=== PATIENT | female | born 1975 | race African-American/Black ===

== ENCOUNTER 2016-11-18 22:02 | Emergency (ER) | payer MEDICAID ==
[2016-11-18 22:41] VITALS: BP 165/100
[2016-11-18 23:11] LABS: ABSOLUTE BASOPHILS # (AUTO) 0.1 10^3/uL (0.0-0.2); ABSOLUTE EOSINOPHILS # (AUTO) 0.2 10^3/uL (0.0-0.6); ABSOLUTE LYMPHOCYTES (AUTO) 2.7 10^3/uL (0.5-4.7); ABSOLUTE MONOCYTES (AUTO) 0.6 10^3/uL (0.1-1.4); ABSOLUTE NEUT (AUTO) 6.8 10^3/uL (1.7-8.2); BASOPHILS % (AUTO) 1.2 % (0-2); EOSINOPHILS % (AUTO) 1.6 % (0-6); HEMATOCRIT 43.4 % (36.0-47.0); HEMOGLOBIN 14.4 g/dL (12.0-15.5); HGB HCT DIFFERENCE -0.2; LYMPHOCYTES % (AUTO) 26.2 % (13-45); MEAN CORPUSCULAR HEMOGLOBIN 31.3 pg (27.0-33.4); MEAN CORPUSCULAR HGB CONC 33.3 g/dL (32.0-36.0); MEAN CORPUSCULAR VOLUME 94 fl (80-97); MONOCYTES % (AUTO) 5.5 % (3-13); RED CELL DISTRIBUTION WIDTH 14.7 % (11.5-14.0); SEGMENTED NEUTROPHILS % (AUTO) 65.5 % (42-78); WHITE BLOOD COUNT 10.4 10^3/uL (4.0-10.5)
[2016-11-18 23:23] LABS: APPEARANCE,URINE SLIGHTLY-CLOUDY; BILIRUBIN,URINE NEGATIVE (NEGATIVE); GLUCOSE, URINE NEGATIVE (NEGATIVE); KETONES,URINE NEGATIVE (NEGATIVE); LEUKOCYTE ESTERASE,URINE TRACE (NEGATIVE); NITRITE,URINE NEGATIVE (NEGATIVE); PROTEIN,URINE NEGATIVE (NEGATIVE); URINE SPECIFIC GRAVITY 1.025; UROBILINOGEN,URINE NEGATIVE mg/dL (<2.0)
[2016-11-18 23:29] LABS: ALANINE AMINOTRANSFERASE 36 U/L (9-52); ALBUMIN 4.4 g/dL (3.5-5.0); ALKALINE PHOSPHATASE 78 U/L (38-126); ANION GAP 12 (5-19); ASPARTATE AMINO TRANSFERASE 26 U/L (14-36); BILIRUBIN,DIRECT 0.2 mg/dL (0.0-0.4); BILIRUBIN,TOTAL 0.6 mg/dL (0.2-1.3); BLOOD UREA NITROGEN 14 mg/dL (7-20); CALCIUM 10.1 mg/dL (8.4-10.2); CARBON DIOXIDE 29 mmol/L (22-30); CHLORIDE 104 mmol/L (98-107); CREATININE RESULT 0.98 mg/dL (0.52-1.25); GLUCOSE 90 mg/dL (75-110); LIPASE 234.9 U/L (23-300); POTASSIUM 4.2 mmol/L (3.6-5.0); SODIUM 144.5 mmol/L (137-145); TOTAL PROTEIN 7.4 g/dL (6.3-8.2)
[2016-11-19] MEDS ORDERED: METOCLOPRAMIDE HCL ORAL SOLN 10 MG/10 ML UDCUP PO ONE (01:24)
[2016-11-19] MEDS ORDERED: MAG HYDROX/AL HYDROX/SIMETH SUSP 30 ML UDCUP PO ONE (01:24)
[2016-11-19] MEDS ORDERED: LIDOCAINE 2% VISCOUS SOLN 20 ML UDCUP PO ONE (01:24)
[2016-11-19] MEDS ORDERED: NORMAL SALINE 1000 ML 1,000 ML IV ONE (01:26)
[2016-11-19] MEDS ORDERED: HYDROCODONE/ACETAMINOPHEN 5-325 MG TABLET PO ONE (03:48)
--- NOTE | 2016-11-19 06:34 | ER Document Report ---
ED GI/ - General Chief Complaint: Abdominal Pain Stated Complaint: ABDOMINAL PAIN Mode of Arrival: Ambulatory Information source: Patient Notes: 41-year-old female presents to the emergency department complaining of intermittently persistent mid upper abdominal pain over the last few days. Reports pain as sharp and cramping with associated nausea. Reports today had 2- 3 episodes of small amounts of emesis and one episode of loose stool. States pain seems to be worse after eating. Denies fever, chest pain, shortness of breath, blood in emesis or stool. Reports similar symptoms in the past. TRAVEL OUTSIDE OF THE [place] IN LAST 30 DAYS: No - HPI Timing/Duration: Intermittent, Persistent Severity at maximum: Severe Severity in ED: Moderate Pain Level: 3 Location: Epigastric, RUQ Vaginal bleeding (Compared to normal period): None Similar symptoms previously: Yes Recently seen / treated by doctor: No - Related Data Allergies/Adverse Reactions: hydromorphone [From Dilaudid] Allergy (Severe, Verified 11/18/16 22:34) Anxiety ibuprofen Allergy (Intermediate, Verified 11/18/16 22:34) Vomiting Past Medical History - General Information source: Patient - Social History Smoking Status: Never Smoker Frequency of alcohol use: Rare Drug Abuse: None Lives with: Family Family History: Reviewed & Not Pertinent Patient has suicidal ideation: No Patient has homicidal ideation: No - Medical History Medical History: Negative Renal/ Medical History: Denies: Hx Peritoneal Dialysis Past Surgical History: Reports: Hx Cholecystectomy - Immunizations Hx Diphtheria, Pertussis, Tetanus Vaccination: Yes Review of Systems - Review of Systems Constitutional: No symptoms reported EENT: No symptoms reported Cardiovascular: No symptoms reported Respiratory: No symptoms reported Gastrointestinal: See HPI Genitourinary: No symptoms reported Female Genitourinary: No symptoms reported Musculoskeletal: No symptoms reported Skin: No symptoms reported Hematologic/Lymphatic: No symptoms reported Neurological/Psychological: No symptoms reported -: Yes All other systems reviewed and negative Physical Exam - Vital signs Vitals: Temp Pulse Resp BP Pulse Ox 98.4 F 62 14 165/100 H 98 11/18/16 22:34 11/18/16 22:34 11/18/16 22:34 11/18/16 22:34 11/18/16 22:34 - General General appearance: Appears well, Alert In distress: None - HEENT Head: Normocephalic, Atraumatic Eyes: Normal Pupils: PERRL - Respiratory Respiratory status: No respiratory distress Chest status: Nontender Breath sounds: Normal Chest palpation: Normal - Cardiovascular Rhythm: Regular Heart sounds: Normal auscultation Murmur: No Pulses: Normal: Radial Normal capillary refill: Yes - Abdominal Inspection: Normal Distension: No distension Bowel sounds: Normal Tenderness: Tender - Mild tenderness on palpation to mid upper/epigastric area.. No: Nontender, McBurney's point, Langford's sign, Guarding, Rebound, Other Organomegaly: No organomegaly - Back Back: Normal, Nontender - Neurological Neuro grossly intact: Yes Cognition: Normal Orientation: AAOx4 Moro Coma Scale Eye Opening: Spontaneous Moro Coma Scale Verbal: Oriented Aurelia Coma Scale Motor: Obeys Commands Aurelia Coma Scale Total: 15 Speech: Normal Motor strength normal: LUE, RUE, LLE, RLE Sensory: Normal - Skin Skin Temperature: Warm Skin Moisture: Dry Skin Color: Normal Skin Turgor: Elastic Course - Re-evaluation Re-evalutation: 11/19/16 06:45 Patient hemodynamically stable, in no distress, afebrile, nontoxic, and appears well-hydrated. After initial examination and diagnostic studies patient reported that she had a previous cholecystectomy. Discussed ultrasound findings with radiologist who reported initial findings likely artifact from overlying bowel gas. Patient appears stable for discharge at this time and agrees with home care, follow-up, ED return precautions. ED physician Dr. Kim was consulted and concurs with evaluation and treatment plan. - Vital Signs Vital signs: Temp Pulse Resp BP Pulse Ox 98.4 F 62 14 165/100 H 98 11/18/16 22:37 11/18/16 22:37 11/18/16 22:37 11/18/16 22:37 11/18/16 22:37 - Laboratory Result Diagrams: 11/18/16 22:50 11/18/16 22:50 Laboratory results interpreted by me: 11/18/16 11/18/16 22:45 22:50 RDW 14.7 H Urine Blood SMALL H Ur Leukocyte Esterase TRACE H - Diagnostic Test Radiology reviewed: Image reviewed, Reports reviewed Discharge - Discharge Clinical Impression: Upper abdominal pain Condition: Stable Disposition: HOME, SELF-CARE Instructions: Low-Fat Diet ([facility]), Evaluation of Upper Abdominal Pain ([facility]), Acid-Suppressing Medication ([facility]), Antacid Therapy ([facility]), Sucralfate ([facility]), Abdominal Pain ([facility]), Family Physicians / Practices Additional Instructions: Drink plenty of fluids. Avoid caffeine, spicy, salty, fatty foods. Follow-up follow up with your primary care provider this week. Return to the emergency department for any worsening symptoms or concerns. Prescriptions: Ranitidine HCl [Zantac 150 mg Tablet] 150 mg PO BID #30 tablet Sucralfate [Carafate 1 gm Tablet] 1 gm PO ACHS #30 tablet Forms: Return to Work Referrals: MARY TORIBIO MD [ACTIVE STAFF] - Follow up in 3-5 days
== END 2016-11-19 06:53 | disposition home or self-care (01) ==
LOC: ER 22:02
DX: R10.10 Upper abdominal pain, unspecified (principal); R11.0 Nausea
CPT/HCPCS: 99284; 36415; 83690; 84703; 85025; 80053; 81001; 74022; 76705; J3490 ×3

== ENCOUNTER 2017-04-10 19:45 | Emergency (ER) | payer MEDICAID ==
--- NOTE | 2017-04-10 21:30 | ER Document Report ---
ED Medical Screen (RME) - General Chief Complaint: Foot Pain Stated Complaint: LEFT FOOT PAIN Time Seen by Provider: 04/10/17 21:29 Mode of Arrival: Wheelchair Information source: Patient Notes: 41-year-old female presents to ED for left foot and ankle pain. She states she was at home on her bed sitting on her leg and her leg went to sleep and she went to get up and when she stood on her foot she heard a crunch and then she fell over. She states she has pain and swelling to the left lateral ankle. She is already had an x-ray. Patient refused Tylenol and Motrin and ice pack. I have greeted and performed a rapid initial assessment of this patient. A comprehensive ED assessment and evaluation of the patient, analysis of test results and completion of medical decision making process will be conducted by an additional ED providers. TRAVEL OUTSIDE OF THE [place] IN LAST 30 DAYS: No - Related Data Allergies/Adverse Reactions: hydromorphone [From Dilaudid] Adverse Reaction (Severe, Verified 04/10/17 20:31) Anxiety ibuprofen Adverse Reaction (Intermediate, Verified 04/10/17 20:31) Vomiting Past Medical History Renal/ Medical History: Denies: Hx Peritoneal Dialysis Past Surgical History: Reports: Hx Cholecystectomy - Immunizations Hx Diphtheria, Pertussis, Tetanus Vaccination: Yes
--- NOTE | 2017-04-10 21:45 | RADIOLOGY REPORT (SQ) ---
EXAM DESCRIPTION: FOOT LEFT COMPLETE COMPLETED DATE/TIME: 04/10/2017 9:19 pm REASON FOR STUDY: pain COMPARISON: None. NUMBER OF VIEWS: Three views. TECHNIQUE: AP, lateral and oblique radiographic images acquired of the left foot. LIMITATIONS: None. FINDINGS: MINERALIZATION: Normal. BONES: No acute fracture or dislocation. No worrisome bone lesions. JOINTS: No effusions. SOFT TISSUES: No soft tissue swelling. No foreign body. OTHER: No other significant finding. IMPRESSION: NO RADIOGRAPHIC EVIDENCE OF ACUTE INJURY. TECHNICAL DOCUMENTATION: JOB ID: [id number] [employer]- All Rights Reserved
[2017-04-11] MEDS ORDERED: OXYCODONE HCL IR 5 MG TABLET PO ONE (00:06)
--- NOTE | 2017-04-11 00:09 | ER Document Report ---
HPI - HPI Patient complains to provider of: left foot pain Pain Level: 5 Context: Patient is a 41-year-old female comes emergency department for chief complaint of left foot pain. She states that she got off of her bed and stepped awkwardly , she states she heard a crunch in her foot. She reports pain along the left side of her left foot. She denies any other injuries. She denies knee pain. - REPRODUCTIVE LMP: hysterectomy - DERM Skin Color: Normal Past Medical History - General Information source: Patient - Social History Smoking Status: Never Smoker Frequency of alcohol use: None Drug Abuse: None Lives with: Family Family History: Reviewed & Not Pertinent Patient has suicidal ideation: No Patient has homicidal ideation: No - Medical History Medical History: Negative Renal/ Medical History: Denies: Hx Peritoneal Dialysis Past Surgical History: Reports: Hx Cholecystectomy - Immunizations Hx Diphtheria, Pertussis, Tetanus Vaccination: Yes Vertical Provider Document - CONSTITUTIONAL General Appearance: WD/WN, No Apparent Distress, Obese - INFECTION CONTROL TRAVEL OUTSIDE OF THE [place] IN LAST 30 DAYS: No - HEENT HEENT: Atraumatic, Normocephalic - RESPIRATORY Respiratory: Breath Sounds Normal, No Respiratory Distress - CARDIOVASCULAR Cardiovascular: Regular Rate, Regular Rhythm - GI/ABDOMEN Gastrointestinal: Abdomen Soft, Abdomen Non-Tender - MUSCULOSKELETAL/EXTREMETIES Musculoskeletal/Extremeties: Tender - Patient with mild tenderness over the left lateral dorsal aspect of the foot, no swelling, unremarkable ankle exam, normal leg exam, normal distal neurovascular exam Course - Re-evaluation Re-evalutation: Patient states that ibuprofen irritates her stomach and occasionally makes her vomit. No other allergy symptoms reported. Given naproxen with Pepcid to take at the same time. - Diagnostic Test Radiology reviewed: Image reviewed, Reports reviewed Procedures - Immobilization left foot Pre-Proc Neuro Vasc Exam: Normal Immobilizer type: Sergio wrap Performed by: RN Post-Proc Neuro Vasc Exam: Normal Alignment checked and good: Yes Discharge - Discharge Clinical Impression: Injury of left foot Qualifiers: Encounter type: initial encounter Qualified Code(s): S99.922A - Unspecified injury of left foot, initial encounter Condition: Stable Disposition: HOME, SELF-CARE Additional Instructions: X-ray imaging shows no abnormalities. Examination is consistent with soft tissue injury and sprain. Elevate your foot , apply ice to the area 3-4 times a day for 15 minutes, take the anti- inflammatory with the Pepcid at the same time. I recommend using the crutches for 2-3 days until symptoms resolve. Follow-up with primary care for additional management. Return to emergency department for any concerning symptoms. Prescriptions: Famotidine [Pepcid 20 mg Tablet] 20 mg PO BID #20 tablet Naproxen [Naprosyn 250 mg Tablet] 250 mg PO BID #20 tablet
[2017-04-11 00:58] VITALS: BP 138/86
== END 2017-04-11 00:56 | disposition home or self-care (01) ==
LOC: ER 19:45
DX: S99.922A Unspecified injury of left foot, initial encounter (principal); M79.672 Pain in left foot; X58.XXXA Exposure to other specified factors, initial encounter
CPT/HCPCS: 99283; 73630; J3490

== ENCOUNTER 2017-04-25 03:40 | Emergency (ER) | payer MEDICAID ==
[2017-04-25 03:51] VITALS: BP 122/78
[2017-04-25] MEDS ORDERED: ACETAMINOPHEN 325 MG TABLET PO ONE (03:51)
--- NOTE | 2017-04-25 04:27 | RADIOLOGY REPORT (SQ) ---
EXAM DESCRIPTION: FOOT LEFT COMPLETE COMPLETED DATE/TIME: 04/25/2017 4:16 am REASON FOR STUDY: injury . Pain across the dorsal aspect of the metatarsals. COMPARISON: Left foot x-ray 04/10/2017. NUMBER OF VIEWS: Three views. TECHNIQUE: AP, lateral and oblique radiographic images acquired of the left foot. LIMITATIONS: None. FINDINGS: MINERALIZATION: Normal. BONES: No acute fracture or dislocation. Bony spurs noted at the calcaneus. SOFT TISSUES: No soft tissue swelling. No radiopaque foreign body. IMPRESSION: No radiographic evidence of acute injury. TECHNICAL DOCUMENTATION: JOB ID: [id number] [email or web address]- All Rights Reserved
[2017-04-25] MEDS ORDERED: PREDNISONE 20 MG TABLET PO ONE (05:14)
--- NOTE | 2017-04-25 05:16 | ER Document Report ---
ED General - General Chief Complaint: Foot Injury Stated Complaint: FOOT INJURY Time Seen by Provider: 04/25/17 05:05 Notes: Patient is a 5-year-old female who presents with complaint of continued left foot pain. Patient slipped and hurt her left foot approximately 2 weeks ago. She was seen here. She was placed on Naprosyn. She says she continues to hurt in her foot. She has crutches at home but says she does not like them because she feels her crutches are dangerous and that she could follow with the crutches. She therefore continues to walk in her foot. She has not followed up with her doctor. She has not seen orthopedist. She has not followed up with the air brake rigger in regard to this foot. She does have a air brake rigger that she seen several times in the past due to plantar fasciitis on the right foot. She says that her left foot still hurts and therefore she wants to be reevaluated. TRAVEL OUTSIDE OF THE [place] IN LAST 30 DAYS: No - Related Data Allergies/Adverse Reactions: hydromorphone [From Dilaudid] Adverse Reaction (Severe, Verified 04/25/17 03:45) Anxiety ibuprofen Adverse Reaction (Intermediate, Verified 04/25/17 03:45) Vomiting Past Medical History - Social History Smoking Status: Never Smoker Frequency of alcohol use: None Drug Abuse: None Family History: Reviewed & Not Pertinent Pulmonary Medical History: Reports: Hx Asthma Renal/ Medical History: Denies: Hx Peritoneal Dialysis Past Surgical History: Reports: Hx Section, Hx Cholecystectomy - Immunizations Hx Diphtheria, Pertussis, Tetanus Vaccination: Yes Review of Systems - Review of Systems Notes: My Normal Review Basic REVIEW OF SYSTEMS: CONSTITUTIONAL : Denies fever, chills, or sweats. Denies recent illness. MUSCULOSKELETAL: Left foot pain. SKIN: Denies rash or skin lesions. NEUROLOGICAL: Denies sensory or motor loss. ALL OTHER SYSTEMS REVIEWED AND NEGATIVE. Physical Exam - Vital signs Vitals: Temp Pulse Resp BP Pulse Ox 98.9 F 110 H 20 122/78 97 04/25/17 03:45 04/25/17 03:45 04/25/17 03:45 04/25/17 03:45 04/25/17 03:45 - Notes Notes: General Appearance: Well nourished, alert, cooperative, no acute distress, mild to moderate obvious discomfort. Vitals: reviewed, See vital signs table. Extremities: strength 5/5 in all extremities, good pulses in all extremities, tenderness to palpation that is over the distal foot itself. No tenderness over the heel. No tenderness over the proximal foot. No tenderness over the Achilles tendon. Pain is mostly over the dorsum of the foot. I do not really appreciate significant swelling. I do not appreciate any warmth or redness. Is no signs of infection. She is able move her toes without difficulty. Distal sensation is intact. Skin: warm, dry, appropriate color, no rash Neuro: speech clear, oriented x 3, normal affect, responds appropriately to questions. Course - Re-evaluation Re-evalutation: 04/25/17 05:46 X-ray continues to show no sign of fracture. I did inform the patient that she needs to follow-up with a air brake rigger for reevaluation. She does have a air brake rigger that she seen in the past. Informed her that they may decide to do injections. Patient really became upset and says that she does not want any by sticking a needle in her foot. I said that I can therefore attempts to start her on prednisone as a taper in case her pain is related to a tendinitis in her foot. I informed her that this could also just be contusion in the foot. I strongly encourage her to use crutches until she is reevaluated by the air brake rigger. Patient says that she does not want to use the crutches because she does not feel that they are safe. She requests something stronger for pain. I do not think opiate medications are appropriate at this time this patient has no fractures and no significant swelling to the foot. I think the harmful side effects of opiates outweigh the benefits in regards to her foot pain. I again strongly encouraged patient to follow-up with her air brake rigger. I did ask her if she is diabetic. Patient is not diabetic and therefore we will try the prednisone taper. Dictation of this chart was performed using voice recognition software; therefore, there may be some unintended grammatical errors. - Vital Signs Vital signs: Temp Pulse Resp BP Pulse Ox 98.9 F 110 H 20 122/78 97 04/25/17 03:45 04/25/17 03:45 04/25/17 03:45 04/25/17 03:45 04/25/17 03:45 Discharge - Discharge Clinical Impression: Foot pain, left Condition: Good Disposition: HOME, SELF-CARE Additional Instructions: Please follow up with a air brake rigger. Please try to use crutches at home. Most people tolerate prednisone well. Some people will fell unwell when taking the prednisone. If you start feeling ill please stop taking the prednisone. Prescriptions: Prednisone 10 mg PO ASDIR #42 tablet
== END 2017-04-25 05:43 | disposition home or self-care (01) ==
LOC: ER 03:40
DX: M79.672 Pain in left foot (principal); W01.0XXA Fall on same level from slipping, tripping and stumbling without subsequent striking against object, initial encounter
CPT/HCPCS: 99283; 73630; J3490; J7512

== ENCOUNTER 2017-07-22 10:24 | Emergency (ER) | payer MEDICAID ==
[2017-07-22] MEDS ORDERED: NORMAL SALINE 1000 ML 1,000 ML IV ONE (10:35)
[2017-07-22] MEDS ORDERED: ONDANSETRON HCL INJ/PF 4 MG/2 ML SDV IV ONE (10:35)
[2017-07-22] MEDS ORDERED: MORPHINE SULFATE 10 MG/ML INJ IV ONE (10:35)
--- NOTE | 2017-07-22 10:36 | ER Document Report ---
ED Medical Screen (RME) - General Chief Complaint: Nausea/Vomiting/Diarrhea Stated Complaint: VOMITING Time Seen by Provider: 07/22/17 10:34 Notes: Patient complains of vomiting, diarrhea, shortness of breath, all over body pain , hematemesis, and coughing. TRAVEL OUTSIDE OF THE [place] IN LAST 30 DAYS: No - Related Data Allergies/Adverse Reactions: hydromorphone [From Dilaudid] Adverse Reaction (Severe, Verified 07/22/17 10:26) Anxiety ibuprofen Adverse Reaction (Intermediate, Verified 07/22/17 10:26) Vomiting Past Medical History - Social History Chew tobacco use (# tins/day): No Frequency of alcohol use: None Drug Abuse: None Pulmonary Medical History: Reports: Hx Asthma Renal/ Medical History: Denies: Hx Peritoneal Dialysis Past Surgical History: Reports: Hx Section, Hx Cholecystectomy - Immunizations Hx Diphtheria, Pertussis, Tetanus Vaccination: Yes Physical Exam - Vital signs Vitals: Temp Pulse Resp BP Pulse Ox 99.4 F 96 22 H 151/99 H 100 07/22/17 10:32 07/22/17 10:32 07/22/17 10:32 07/22/17 10:32 07/22/17 10:32 Course - Vital Signs Vital signs: Temp Pulse Resp BP Pulse Ox 99.4 F 96 22 H 151/99 H 100 07/22/17 10:32 07/22/17 10:32 07/22/17 10:32 07/22/17 10:32 07/22/17 10:32
--- NOTE | 2017-07-22 11:04 | ER Document Report ---
ED General - General Chief Complaint: Nausea/Vomiting/Diarrhea Stated Complaint: VOMITING Time Seen by Provider: 07/22/17 10:34 Notes: Patient is a 42-year-old female with past medical history including schizophrenia, anxiety, and high blood pressure presents initially 5 days ago with the onset of runny nose, congestion, and "body aches". She states she subsequently has developed vomiting and diarrhea. She denies any and all abdominal pain or dysuria. She denies sore throat, headache, neck stiffness, or rash. She states small amount of blood in some of the vomitus. She did not take her medications this morning secondary to nausea. TRAVEL OUTSIDE OF THE [place] IN LAST 30 DAYS: No - HPI Onset: Other - See above Onset/Duration: Gradual Quality of pain: Achy Severity: Mild Pain Level: 1 Associated symptoms: Other - See above Exacerbated by: Denies Relieved by: Denies Similar symptoms previously: No Recently seen / treated by doctor: No - Related Data Allergies/Adverse Reactions: hydromorphone [From Dilaudid] Adverse Reaction (Severe, Verified 07/22/17 10:26) Anxiety ibuprofen Adverse Reaction (Intermediate, Verified 07/22/17 10:26) Vomiting Past Medical History - General Information source: Patient - Social History Smoking Status: Current Every Day Smoker Cigarette use (# per day): No Chew tobacco use (# tins/day): No Smoking Education Provided: No Frequency of alcohol use: None Drug Abuse: None Family History: Reviewed & Not Pertinent Patient has suicidal ideation: No Patient has homicidal ideation: No Pulmonary Medical History: Reports: Hx Asthma Renal/ Medical History: Denies: Hx Peritoneal Dialysis Past Surgical History: Reports: Hx Section, Hx Cholecystectomy - Immunizations Hx Diphtheria, Pertussis, Tetanus Vaccination: Yes Review of Systems - Review of Systems Constitutional: denies: Fever EENT: Nose congestion, Nose discharge. denies: Eye discharge Cardiovascular: denies: Chest pain, Palpitations Respiratory: denies: Short of breath Gastrointestinal: Diarrhea, Vomiting Genitourinary: denies: Dysuria Musculoskeletal: denies: Leg swelling Skin: Other - no hives. denies: Rash Neurological/Psychological: Other - no slurred speech -: Yes All other systems reviewed and negative Physical Exam - Vital signs Vitals: Temp Pulse Resp BP Pulse Ox 99.4 F 96 22 H 151/99 H 100 07/22/17 10:32 07/22/17 10:32 07/22/17 10:32 07/22/17 10:32 07/22/17 10:32 Notes: Reviewed vital signs and nursing note as charted by RN. CONSTITUTIONAL: Alert and oriented and responds appropriately to questions. Well -appearing; well-nourished HEAD: Normocephalic; atraumatic EYES: Sclerae non-icteric ENT: Normal nose; positive nonpurulent nasal rhinorrhea; moist mucous membranes ; pharynx without lesions noted NECK: Supple without meningismus; non-tender; no cervical lymphadenopathy, no masses CARD: Regular rate and rhythm; no murmurs RESP: Normal chest excursion without splinting or tachypnea; breath sounds clear and equal bilaterally; no wheezing or rhonchi present ABD/GI: Normal bowel sounds; non-distended; soft, nontender to deep palpation of all 4 quadrants of the abdomen BACK: The back appears normal and is non-tender to palpation, there is no CVA tenderness EXT: Normal ROM in all joints; non-tender to palpation; no edema SKIN: No acute lesions noted NEURO: Moves all extremities equally; Motor and sensory function intact PSYCH: The patient's mood and manner are appropriate. Grooming and personal hygiene are appropriate. Course - Re-evaluation Re-evalutation: 07/22/17 11:03 Given the above history, physical, past medical history, with runny nose, congestion, body aches, vomiting, diarrhea, I do believe that this is most likely viral in etiology. We will obtain basic labs, electrolytes, x-ray of the chest, and reassess. I will attempt to provide the patient psychiatric medications prior to discharge. 07/22/17 14:02 Labs and urine as recorded. X-rays recorded. Patient has not vomited here. She is currently sleeping. Pain-free. Abdomen labs as recorded. Patient will be discharged home with strict return precautions and a course of antibiotics. I will also provide antinausea medications. Patient states she will resume her home medications upon discharge. - Vital Signs Vital signs: Temp Pulse Resp BP Pulse Ox 99.4 F 96 22 H 151/99 H 100 07/22/17 10:32 07/22/17 10:32 07/22/17 10:32 07/22/17 10:32 07/22/17 10:32 - Laboratory Result Diagrams: 07/22/17 11:05 07/22/17 11:05 Laboratory results interpreted by me: 07/22/17 07/22/17 07/22/17 11:05 11:05 11:10 WBC 13.3 H Absolute Neutrophils 9.6 H Sodium 146.0 H Potassium 3.5 L Direct Bilirubin 0.5 H AST 40 H Urine Protein 100 H Urine Ketones TRACE H Urine Bilirubin SMALL H Urine Urobilinogen 4.0 H Urine Ascorbic Acid 20 H Discharge - Discharge Clinical Impression: Nausea vomiting and diarrhea Acute bronchitis Qualifiers: Bronchitis organism: unspecified organism Qualified Code(s): J20.9 - Acute bronchitis, unspecified Condition: Good Disposition: HOME, SELF-CARE Additional Instructions: Come back immediately with any worsening cough, lethargy, persistent vomiting or diarrhea, or any other acute problems. Please take medications as prescribed. Prescriptions: Azithromycin [Zithromax 250 mg Tablet] 250 mg PO ASDIR PRN #6 tablet PRN Reason: Metoclopramide HCl [Reglan 10 mg Tablet] 1 tab PO ASDIR PRN #12 tablet PRN Reason:
[2017-07-22 11:25] LABS: ABSOLUTE BASOPHILS # (AUTO) 0.2 10^3/uL (0.0-0.2); ABSOLUTE EOSINOPHILS # (AUTO) 0.1 10^3/uL (0.0-0.6); ABSOLUTE LYMPHOCYTES (AUTO) 2.7 10^3/uL (0.5-4.7); ABSOLUTE MONOCYTES (AUTO) 0.8 10^3/uL (0.1-1.4); ABSOLUTE NEUT (AUTO) 9.6 10^3/uL (1.7-8.2); BASOPHILS % (AUTO) 1.3 % (0-2); EOSINOPHILS % (AUTO) 0.7 % (0-6); HEMOGLOBIN 13.9 g/dL (12.0-15.5); HGB HCT DIFFERENCE 0.7; LYMPHOCYTES % (AUTO) 20.4 % (13-45); MEAN CORPUSCULAR HEMOGLOBIN 30.3 pg (27.0-33.4); MEAN CORPUSCULAR HGB CONC 33.9 g/dL (32.0-36.0); MEAN CORPUSCULAR VOLUME 89 fl (80-97); MONOCYTES % (AUTO) 5.8 % (3-13); RED BLOOD COUNT 4.59 10^6/uL (3.72-5.28); RED CELL DISTRIBUTION WIDTH 13.9 % (11.5-14.0); SEGMENTED NEUTROPHILS % (AUTO) 71.8 % (42-78); WHITE BLOOD COUNT 13.3 10^3/uL (4.0-10.5)
--- NOTE | 2017-07-22 11:29 | RADIOLOGY REPORT (SQ) ---
EXAM DESCRIPTION: CHEST PA/LAT COMPLETED DATE/TIME: 07/22/2017 11:17 am REASON FOR STUDY: 16hw, cough COMPARISON: None. EXAM PARAMETERS: NUMBER OF VIEWS: two views TECHNIQUE: Digital Frontal and Lateral radiographic views of the chest acquired. RADIATION DOSE: NA LIMITATIONS: none FINDINGS: LUNGS AND PLEURA: Patchy, diffuse interstitial pattern. No effusions. MEDIASTINUM AND HILAR STRUCTURES: No masses or contour abnormalities. HEART AND VASCULAR STRUCTURES: Heart normal size. No evidence for failure. BONES: No acute findings. HARDWARE: None in the chest. OTHER: No other significant finding. IMPRESSION: Suspect early viral or atypical pneumonia. Clinical correlation is needed. TECHNICAL DOCUMENTATION: JOB ID: [id number]- All Rights Reserved
[2017-07-22 11:52] LABS: ALANINE AMINOTRANSFERASE 40 U/L (9-52); ALBUMIN 4.4 g/dL (3.5-5.0); ALKALINE PHOSPHATASE 126 U/L (38-126); ANION GAP 19 (5-19); ASPARTATE AMINO TRANSFERASE 40 U/L (14-36); BILIRUBIN,DIRECT 0.5 mg/dL (0.0-0.4); BLOOD UREA NITROGEN 9 mg/dL (7-20); CARBON DIOXIDE 25 mmol/L (22-30); CHLORIDE 102 mmol/L (98-107); CREATININE RESULT 0.88 mg/dL (0.52-1.25); GLUCOSE 96 mg/dL (75-110); LIPASE 166.6 U/L (23-300); POTASSIUM 3.5 mmol/L (3.6-5.0); TOTAL PROTEIN 7.8 g/dL (6.3-8.2)
[2017-07-22 12:06] LABS: APPEARANCE,URINE TURBID; BILIRUBIN,URINE SMALL (NEGATIVE); GLUCOSE, URINE NEGATIVE (NEGATIVE); KETONES,URINE TRACE mg/dL (NEGATIVE); LEUKOCYTE ESTERASE,URINE NEGATIVE (NEGATIVE); NITRITE,URINE NEGATIVE (NEGATIVE); PROTEIN,URINE 100 mg/dL (NEGATIVE); URINE SPECIFIC GRAVITY 1.034
[2017-07-22] MEDS ORDERED: AZITHROMYCIN 250 MG TABLET PO ONE (14:01)
[2017-07-22 15:18] VITALS: BP 133/82
== END 2017-07-22 15:18 | disposition home or self-care (01) ==
LOC: ER 10:24
DX: R11.2 Nausea with vomiting, unspecified (principal); R19.7 Diarrhea, unspecified; J20.9 Acute bronchitis, unspecified; M79.1 Myalgia; Z88.6 Allergy status to analgesic agent
CPT/HCPCS: 99284; 96361; 96374; 96375; 36415; 83690; 85025; 81025; 80053; 81001; 71020; Q0144; J2270; J2405; J7030

== ENCOUNTER 2017-09-22 09:47 | Emergency (ER) | payer SELFPAY ==
[2017-09-22] MEDS ORDERED: ONDANSETRON 4 MG TAB.RAPDIS PO ONE (10:03)
[2017-09-22] MEDS ORDERED: NORMAL SALINE 1000 ML 1,000 ML IV ONE ×2 (10:03→10:25)
--- NOTE | 2017-09-22 10:07 | ER Document Report ---
ED Medical Screen (RME) - General Chief Complaint: Nausea/Vomiting Stated Complaint: VOMITING Time Seen by Provider: 09/22/17 10:03 Mode of Arrival: Ambulatory Information source: Patient TRAVEL OUTSIDE OF THE [place] IN LAST 30 DAYS: No - HPI Onset: Other - 3 DAYS Onset/Duration: Gradual Quality of pain: Achy Severity: Moderate Associated Symptoms: Diarrhea, Vomiting Exacerbated by: Denies Relieved by: Denies Similar symptoms previously: Yes - NOT RECENT Recently seen / treated by doctor: Yes - LAST WK, Rx FOR FLU (TAMIFLU) - Related Data Allergies/Adverse Reactions: hydromorphone [From Dilaudid] Adverse Reaction (Severe, Verified 09/22/17 09:54) Anxiety ibuprofen Adverse Reaction (Intermediate, Verified 09/22/17 09:54) Vomiting Past Medical History - Social History Chew tobacco use (# tins/day): No Frequency of alcohol use: None Drug Abuse: None - Past Medical History Cardiac Medical History: Reports: Hx Hypertension Pulmonary Medical History: Reports: Hx Asthma Renal/ Medical History: Denies: Hx Peritoneal Dialysis Past Surgical History: Reports: Hx Section, Hx Cholecystectomy - Immunizations Hx Diphtheria, Pertussis, Tetanus Vaccination: Yes Review of Systems - Review of Systems Constitutional: Fever EENT: No symptoms reported Cardiovascular: No symptoms reported Respiratory: No symptoms reported Gastrointestinal: See HPI Physical Exam - Vital signs Vitals: Temp Pulse Resp BP Pulse Ox 98.9 F 83 14 135/93 H 96 09/22/17 09:51 09/22/17 09:51 09/22/17 09:51 09/22/17 09:51 09/22/17 09:51 Interpretation: Hypertensive. No: Tachycardic, Tachypneic, Febrile - General General appearance: Appears well, Alert In distress: None - HEENT Head: Normocephalic Eyes: Normal Conjunctiva: Normal Ears: Normal Nasal: Normal Mucous membranes: Dry - MILDLY Pharynx: Normal Neck: Normal - Respiratory Respiratory status: No respiratory distress - Cardiovascular Rhythm: Regular Course - Vital Signs Vital signs: Temp Pulse Resp BP Pulse Ox 98.9 F 83 14 135/93 H 96 09/22/17 09:51 09/22/17 09:51 09/22/17 09:51 09/22/17 09:51 09/22/17 09:51
--- NOTE | 2017-09-22 10:24 | ER Document Report ---
ED GI/ - General Chief Complaint: Nausea/Vomiting Stated Complaint: VOMITING Time Seen by Provider: 09/22/17 10:03 Mode of Arrival: Ambulatory Information source: Patient Notes: 42-year-old female complaining of vomiting and diarrhea since . She works at [employer]. No fever. No abdominal pain. No dysuria. No recent antibiotics. She did take Tamiflu and prednisone earlier in the week when she went to another ER with left ear pain. Left low back pain which she has had in the past. No radiculopathy or saddle anesthesia. TRAVEL OUTSIDE OF THE [place] IN LAST 30 DAYS: No - Related Data Allergies/Adverse Reactions: hydromorphone [From Dilaudid] Adverse Reaction (Severe, Verified 09/22/17 09:54) Anxiety ibuprofen Adverse Reaction (Intermediate, Verified 09/22/17 09:54) Vomiting Past Medical History - General Information source: Patient - Social History Smoking Status: Current Every Day Smoker Chew tobacco use (# tins/day): No Frequency of alcohol use: None Drug Abuse: None Lives with: Family Family History: Reviewed & Not Pertinent Patient has suicidal ideation: No Patient has homicidal ideation: No - Past Medical History Cardiac Medical History: Reports: Hx Hypertension Pulmonary Medical History: Reports: Hx Asthma Renal/ Medical History: Denies: Hx Peritoneal Dialysis Past Surgical History: Reports: Hx Section, Hx Cholecystectomy, Hx Hysterectomy - Immunizations Hx Diphtheria, Pertussis, Tetanus Vaccination: Yes Review of Systems - Review of Systems Constitutional: No symptoms reported EENT: No symptoms reported Cardiovascular: No symptoms reported Respiratory: No symptoms reported Gastrointestinal: See HPI Genitourinary: No symptoms reported Female Genitourinary: No symptoms reported Musculoskeletal: No symptoms reported Skin: No symptoms reported Hematologic/Lymphatic: No symptoms reported Neurological/Psychological: No symptoms reported Physical Exam - Vital signs Vitals: Temp Pulse Resp BP Pulse Ox 98.9 F 83 14 135/93 H 96 09/22/17 09:51 09/22/17 09:51 09/22/17 09:51 09/22/17 09:51 09/22/17 09:51 Interpretation: Normal - Notes Notes: Obese - General General appearance: Appears well, Alert In distress: None - HEENT Head: Normocephalic, Atraumatic Eyes: Normal Conjunctiva: Normal Pupils: PERRL Mucous membranes: Dry Neck: Supple. No: Lymphadenopathy - Respiratory Respiratory status: No respiratory distress Chest status: Nontender Breath sounds: Normal Chest palpation: Normal - Cardiovascular Rhythm: Regular Heart sounds: Normal auscultation Murmur: No - Abdominal Inspection: Normal Distension: No distension Bowel sounds: Normal Tenderness: Nontender. No: Tender Organomegaly: No organomegaly - Back Back: Normal, Nontender. No: Tender, CVA tenderness - Extremities General upper extremity: Normal inspection, Nontender, Normal color, Normal ROM , Normal temperature General lower extremity: Normal inspection, Nontender, Normal color, Normal ROM , Normal temperature, Normal weight bearing. No: Apollo's sign - Neurological Neuro grossly intact: Yes Cognition: Normal Orientation: AAOx4 Holland Coma Scale Eye Opening: Spontaneous [place] Coma Scale Verbal: Oriented [place] Coma Scale Motor: Obeys Commands Aurelia Coma Scale Total: 15 Speech: Normal Motor strength normal: LUE, RUE, LLE, RLE Sensory: Normal - Psychological Associated symptoms: Normal affect, Normal mood - Skin Skin Temperature: Warm Skin Moisture: Dry Skin Color: Normal Skin irregularity: negative: Rash Course - Re-evaluation Re-evalutation: 09/22/17 10:55 Drinking ignacio carlos alberto and eating crackers she is hungry. 09/22/17 12:08 Urinalysis negative for infection with a specific gravity of 1.025 and 3/4 L of fluid. No vomiting or diarrhea while she has been in the emergency room. still c/o left low back pain pointint to the SI joint area. - Vital Signs Vital signs: Temp Pulse Resp BP Pulse Ox 98.9 F 83 14 135/93 H 96 09/22/17 09:51 09/22/17 09:51 09/22/17 09:51 09/22/17 09:51 09/22/17 09:51 - Laboratory Result Diagrams: 09/22/17 10:15 09/22/17 10:15 Laboratory results interpreted by me: 09/22/17 09/22/17 09/22/17 10:15 10:15 11:48 RDW 14.8 H Potassium 3.5 L Glucose 114 H Calcium 10.4 H Urine Blood SMALL H Discharge - Discharge Clinical Impression: Dehydration Vomiting Qualifiers: Vomiting type: unspecified Vomiting Intractability: non-intractable Nausea presence: with nausea Qualified Code(s): R11.2 - Nausea with vomiting, unspecified Diarrhea Qualifiers: Diarrhea type: unspecified type Qualified Code(s): R19.7 - Diarrhea, unspecified Low back pain Qualifiers: Chronicity: acute Back pain laterality: left Sciatica presence: without sciatica Qualified Code(s): M54.5 - Low back pain Condition: Good Disposition: HOME, SELF-CARE Instructions: Intravenous (IV) Fluids ([facility]), Diarrhea, Nonspecific ([facility]), Antinausea Medication ([facility]), Vomiting ([facility]), Low Back Pain ([facility]) Additional Instructions: Warm compress Tylenol for back discomfort Copy of lab were given to you Return to the emergency room any worsening symptoms see family practice doctor for follow up Prescriptions: Ondansetron HCl [Zofran 4 mg Tablet] 1 - 2 tab PO Q4H PRN #20 tablet PRN Reason: Forms: Return to Work
[2017-09-22 10:44] LABS: ABSOLUTE EOSINOPHILS # (AUTO) 0.1 10^3/uL (0.0-0.6); ABSOLUTE LYMPHOCYTES (AUTO) 1.4 10^3/uL (0.5-4.7); ABSOLUTE MONOCYTES (AUTO) 0.4 10^3/uL (0.1-1.4); ABSOLUTE NEUT (AUTO) 4.2 10^3/uL (1.7-8.2); BASOPHILS % (AUTO) 0.5 % (0-2); EOSINOPHILS % (AUTO) 1.6 % (0-6); HEMATOCRIT 43.6 % (36.0-47.0); HEMOGLOBIN 14.6 g/dL (12.0-15.5); LYMPHOCYTES % (AUTO) 22.7 % (13-45); MEAN CORPUSCULAR HEMOGLOBIN 30.1 pg (27.0-33.4); MEAN CORPUSCULAR HGB CONC 33.5 g/dL (32.0-36.0); MEAN CORPUSCULAR VOLUME 90 fl (80-97); MONOCYTES % (AUTO) 6.5 % (3-13); PLATELET COUNT 332 10^3/uL (150-450); RED BLOOD COUNT 4.85 10^6/uL (3.72-5.28); RED CELL DISTRIBUTION WIDTH 14.8 % (11.5-14.0); SEGMENTED NEUTROPHILS % (AUTO) 68.7 % (42-78); TOTAL CELLS COUNTED % (AUTO) 100 %
[2017-09-22 11:02] LABS: ALANINE AMINOTRANSFERASE 51 U/L (9-52); ALBUMIN 4.5 g/dL (3.5-5.0); ALKALINE PHOSPHATASE 73 U/L (38-126); ANION GAP 12 (5-19); ASPARTATE AMINO TRANSFERASE 27 U/L (14-36); BILIRUBIN,DIRECT 0.4 mg/dL (0.0-0.4); BILIRUBIN,TOTAL 0.8 mg/dL (0.2-1.3); BLOOD UREA NITROGEN 10 mg/dL (7-20); CALCIUM 10.4 mg/dL (8.4-10.2); CARBON DIOXIDE 28 mmol/L (22-30); CHLORIDE 103 mmol/L (98-107); GLUCOSE 114 mg/dL (75-110); LIPASE 173.9 U/L (23-300); POTASSIUM 3.5 mmol/L (3.6-5.0); SODIUM 142.6 mmol/L (137-145); TOTAL PROTEIN 7.5 g/dL (6.3-8.2)
[2017-09-22 12:00] LABS: APPEARANCE,URINE CLOUDY; BILIRUBIN,URINE NEGATIVE (NEGATIVE); COLOR,URINE YELLOW; GLUCOSE, URINE NEGATIVE (NEGATIVE); KETONES,URINE NEGATIVE (NEGATIVE); LEUKOCYTE ESTERASE,URINE NEGATIVE (NEGATIVE); NITRITE,URINE NEGATIVE (NEGATIVE); PROTEIN,URINE NEGATIVE (NEGATIVE); URINE SPECIFIC GRAVITY 1.025; UROBILINOGEN,URINE NEGATIVE mg/dL (<2.0)
[2017-09-22] MEDS ORDERED: ACETAMINOPHEN 325 MG TABLET PO ONE (12:13)
[2017-09-22 12:24] VITALS: BP 128/92
== END 2017-09-22 12:25 | disposition home or self-care (01) ==
LOC: ER 09:47
DX: E86.0 Dehydration (principal); R11.2 Nausea with vomiting, unspecified; R19.7 Diarrhea, unspecified; M54.5 Low back pain; E66.9 Obesity, unspecified; F17.200 Nicotine dependence, unspecified, uncomplicated; I10 Essential (primary) hypertension; Z88.6 Allergy status to analgesic agent; Z90.49 Acquired absence of other specified parts of digestive tract; Z90.710 Acquired absence of both cervix and uterus
CPT/HCPCS: 99284; 96360; 96361; 36415; 83690; 85025; 80053; 81001; S0119; J7030

== ENCOUNTER 2017-12-12 21:51 | Emergency (ER) | payer SELFPAY ==
[2017-12-12 22:35] VITALS: BP 152/114
--- NOTE | 2017-12-13 07:50 | EKG REPORT ---
SEVERITY:- BORDERLINE ECG - SINUS RHYTHM PROBABLE LEFT ATRIAL ABNORMALITY BORDERLINE PROLONGED QT INTERVAL : Confirmed by: Regis Gutierrez MD 13-Dec-2017 07:49:45
== END 2017-12-12 23:05 | disposition left against medical advice (07) ==
LOC: ER 21:51
DX: Z53.21 Procedure and treatment not carried out due to patient leaving prior to being seen by health care provider (principal); R07.9 Chest pain, unspecified
CPT/HCPCS: 93005; 93010

== ENCOUNTER 2017-12-13 03:40 | Emergency (ER) | payer SELFPAY ==
--- NOTE | 2017-12-13 03:47 | ER Document Report ---
ED Cardiac - General Chief Complaint: Chest Pain Stated Complaint: CHEST PAIN Time Seen by Provider: 12/13/17 03:46 Notes: The patient is a 42-year-old female, past medical history hypertension, presents with several hours of left upper chest and neck pain. She was in the ER waiting room earlier in the night, but left due to the weight. She arrives by ambulance with her chest pain now. She said aspirin relieved her chest pain. She denies shortness of breath, numbness, tingling, fevers or headache. TRAVEL OUTSIDE OF THE [place] IN LAST 30 DAYS: No - Related Data Allergies/Adverse Reactions: hydromorphone [From Dilaudid] Adverse Reaction (Severe, Verified 12/13/17 04:37) Anxiety ibuprofen Adverse Reaction (Intermediate, Verified 12/13/17 04:37) Vomiting Past Medical History - General Information source: Patient - Social History Smoking Status: Current Every Day Smoker Family History: Reviewed & Not Pertinent - Past Medical History Cardiac Medical History: Reports: Hx Hypertension Pulmonary Medical History: Reports: Hx Asthma Renal/ Medical History: Denies: Hx Peritoneal Dialysis Past Surgical History: Reports: Hx Section, Hx Cholecystectomy, Hx Hysterectomy - Immunizations Hx Diphtheria, Pertussis, Tetanus Vaccination: Yes Review of Systems - Review of Systems Notes: REVIEW OF SYSTEMS: CONSTITUTIONAL: -fevers, -chills EENT: -eye pain, -difficulty swallowing, -nasal congestion CARDIOVASCULAR: +chest pain, -syncope. RESPIRATORY: -cough, -SOB GASTROINTESTINAL: -abdominal pain, -nausea, -vomiting, -diarrhea GENITOURINARY: -dysuria, -hematuria MUSCULOSKELETAL: -back pain, -neck pain SKIN: -rash or skin lesions. HEMATOLOGIC: -easy bruising or bleeding. LYMPHATIC: -swollen, enlarged glands. NEUROLOGICAL: -altered mental status or loss of consciousness, -headache, - neurologic symptoms PSYCHIATRIC: -anxiety, -depression. ALL OTHER SYSTEMS REVIEWED AND NEGATIVE. Physical Exam - Vital signs Vitals: Temp 98.1 F 12/13/17 03:45 - Notes Notes: PHYSICAL EXAMINATION: GENERAL: Well-appearing, well-nourished and in no acute distress. HEAD: Atraumatic, normocephalic. EYES: Pupils equal round and reactive to light, extraocular movements intact, sclera anicteric, conjunctiva are normal. ENT: nares patent, oropharynx clear without exudates. Moist mucous membranes. NECK: Normal range of motion, supple without lymphadenopathy LUNGS: Breath sounds clear to auscultation bilaterally and equal. No wheezes rales or rhonchi. HEART: Regular rate and rhythm without murmurs CHEST WALL: Tenderness over left anterior upper chest wall. ABDOMEN: Soft, nontender, normoactive bowel sounds. No guarding, no rebound. No masses appreciated. EXTREMITIES: Normal range of motion, no pitting or edema. No cyanosis. NEUROLOGICAL: Cranial nerves grossly intact. Normal speech, normal gait. Normal sensory and motor exams. PSYCH: Normal mood, normal affect. SKIN: Warm, Dry, normal turgor, no rashes or lesions noted. Course - Re-evaluation Re-evalutation: Patient appears well. Blood work is unremarkable, including normal troponin. EKG also does not show any evidence of acute ischemic changes or a STEMI. Chest x-ray is also unremarkable. Her HEART score is 1 (1 for risk factors) and she is PERC negative. Symptoms are atypical for aortic dissection at this time. She has an appointment her primary care physician today. Given strict return precautions and she understands. - Vital Signs Vital signs: Temp Pulse Resp BP Pulse Ox 98.1 F 16 137/58 H 100 12/13/17 03:45 12/13/17 04:02 12/13/17 04:02 12/13/17 03:48 - Laboratory Result Diagrams: 12/13/17 03:49 12/13/17 03:49 Laboratory results interpreted by me: 12/13/17 03:49 WBC 10.9 H RDW 14.7 H - Diagnostic Test Radiology reviewed: Image reviewed, Reports reviewed Radiology results interpreted by me: CXR: NAD - EKG Interpretation by Ms EKG shows normal: Sinus rhythm, Velva, Intervals, QRS Complexes, ST-T Waves Rate: Normal Discharge - Discharge Clinical Impression: Chest pain Qualifiers: Chest pain type: unspecified Qualified Code(s): R07.9 - Chest pain, unspecified Condition: Stable Disposition: HOME, SELF-CARE Additional Instructions: CHEST PAIN OF UNCLEAR CAUSE: The exact cause of your chest pain isn't clear. Fortunately, there is no evidence of a dangerous medical condition. Further testing may be required to find the source of the pain. Most often, we find that this pain is coming from the chest wall -- the muscles or rib joints in the chest. But chest pain can come from the lung and lung lining, the esophagus, the heart valves or heart lining, and even the stomach or gallbladder. Rest. Eat lightly until the pain is gone. We may prescribe medicine for pain and inflammation. You should call the physician immediately if the pain radiates to the shoulder, jaw or arms; if you start to run a fever or develop a cough; or if you develop shortness of breath, or other new or alarming symptoms. NORMAL EXAM AND WORKUP: At this time, your examination and workup show no significant abnormality. No significant abnormal physical findings were noted. All laboratory, EKG, and imaging (x-ray, CT scans, ultrasound) studies that were ordered show no significant abnormality. Although your examination and all studies that were ordered showed no significant abnormal finding, there are no examinations and no studies that are 100% accurate. There is always the possibility that some abnormality could exist and not be detected with physical examination or within the limits and capabilities of laboratory and other studies. You should return or follow up as you were instructed on your visit today for further evaluation if your symptoms do not resolve. CHEST WALL PAIN: Your chest pain may be coming from the chest wall. This is often caused by straining the muscles or joints in the chest during physical activity, direct trauma, coughing, or vigorous vomiting. Persons with arthritis are especially prone to this type of pain, due to inflammation of the cartilage joints near the breast bone. Occasionally, no cause can be found. Rest from strenuous physical activity. This kind of chest pain is usually made worse by movement of the chest. Depending on the symptoms, we may prescribe medicine for pain, muscle relaxation, and antiinflammatory effects. If the pain is new, and seems to be due to muscle strain, cold packs can help. Otherwise, apply gentle warmth to the painful area for 15 minutes every hour or two. You should call contact the doctor immediately if things change. Further evaluation is needed if you develop a fever or cough, if the nature of the pain changes, or if you become short of breath. ANGINA EPISODE: Your physician has diagnosed the pain you experienced as an episode of angina. Angina occurs when a portion of the heart muscle temporarily lacks oxygen. It does not cause any permanent heart damage, but serves as a warning. Hospitalization is not necessary now. Evaluation of your cardiac condition , and medical therapy for angina will be necessary. It's important you be sure to keep all appointments and take medication exactly as prescribed. Angina is usually treated with a type of "nitrate" medication. This is available as ointment, pills, or sublingual (under the tongue) tablets. Depending on your clinical situation, other medications may be added to help control angina. These may include beta blockers or calcium blockers. If episodes of angina are occurring with increased frequency, or if chest pain lasts longer than 15 minutes or does not respond to nitroglycerin, you must seek emergency medical care immediately. ASPIRIN: Aspirin has been shown to have a beneficial effect on blood circulation by reducing the clotting effect of platelets in the blood. These beneficial effects can be achieved by taking just a single baby (81 mg) aspirin a day. It is recommended that any person over the age of forty take a single baby aspirin every day for heart and brain circulation, unless you are allergic to aspirin or have some significant bleeding disorder. It is strongly recommended that people who have proven cardiac or blood circulation disturbances should take a baby aspirin every day. FOLLOW-UP CARE: If you have been referred to a physician for follow-up care, call the physician s office for an appointment as you were instructed or within the next two days. If you experience worsening or a significant change in your symptoms, notify the physician immediately or return to the Emergency Department at any time for re-evaluation. Forms: Elevated Blood Pressure Referrals: ENMANUEL BRIZUELA MD [ACTIVE STAFF] - Follow up as needed
[2017-12-13 04:02] LABS: ABSOLUTE BASOPHILS # (AUTO) 0.1 10^3/uL (0.0-0.2); ABSOLUTE EOSINOPHILS # (AUTO) 0.2 10^3/uL (0.0-0.6); ABSOLUTE MONOCYTES (AUTO) 0.8 10^3/uL (0.1-1.4); ABSOLUTE NEUT (AUTO) 6.8 10^3/uL (1.7-8.2); BASOPHILS % (AUTO) 1.4 % (0-2); EOSINOPHILS % (AUTO) 1.6 % (0-6); HEMOGLOBIN 12.4 g/dL (12.0-15.5); LYMPHOCYTES % (AUTO) 27.4 % (13-45); MEAN CORPUSCULAR HEMOGLOBIN 29.8 pg (27.0-33.4); MEAN CORPUSCULAR HGB CONC 33.6 g/dL (32.0-36.0); MEAN CORPUSCULAR VOLUME 89 fl (80-97); MONOCYTES % (AUTO) 7.2 % (3-13); PLATELET COUNT 293 10^3/uL (150-450); RED BLOOD COUNT 4.17 10^6/uL (3.72-5.28); RED CELL DISTRIBUTION WIDTH 14.7 % (11.5-14.0); SEGMENTED NEUTROPHILS % (AUTO) 62.4 % (42-78); TOTAL CELLS COUNTED % (AUTO) 100 %; WHITE BLOOD COUNT 10.9 10^3/uL (4.0-10.5)
[2017-12-13 04:11] LABS: ALANINE AMINOTRANSFERASE 37 U/L (9-52); ALBUMIN 3.9 g/dL (3.5-5.0); ALKALINE PHOSPHATASE 69 U/L (38-126); ANION GAP 10 (5-19); ASPARTATE AMINO TRANSFERASE 23 U/L (14-36); BILIRUBIN,DIRECT 0.3 mg/dL (0.0-0.4); BILIRUBIN,TOTAL 0.3 mg/dL (0.2-1.3); BLOOD UREA NITROGEN 12 mg/dL (7-20); CALCIUM 9.8 mg/dL (8.4-10.2); CARBON DIOXIDE 29 mmol/L (22-30); CHLORIDE 105 mmol/L (98-107); GLUCOSE 89 mg/dL (75-110); POTASSIUM 3.9 mmol/L (3.6-5.0); SODIUM 144.1 mmol/L (137-145); TOTAL PROTEIN 6.9 g/dL (6.3-8.2)
[2017-12-13] MEDS ORDERED: ACETAMINOPHEN 325 MG TABLET PO ONE (04:13)
[2017-12-13 04:23] LABS: NT PRO BNP 55 pg/mL (<125)
--- NOTE | 2017-12-13 04:26 | RADIOLOGY REPORT (SQ) ---
EXAM DESCRIPTION: CHEST SINGLE VIEW CLINICAL HISTORY: 42 years Female, chest pain COMPARISON: 07/22/2017. NUMBER OF VIEWS/TECHNIQUE: 1/AP FINDINGS: Adequate lung volume, clear parenchyma, normal cardiac silhouette, and intact bony thorax. IMPRESSION: No acute cardiopulmonary findings.
[2017-12-13 04:29] LABS: TROPONIN I < 0.012 ng/mL
[2017-12-13 04:34] VITALS: BP 137/58
--- NOTE | 2017-12-13 07:50 | EKG REPORT ---
SEVERITY:- BORDERLINE ECG - SINUS RHYTHM PROBABLE LEFT ATRIAL ABNORMALITY NONSPECIFIC ST-T CHANGES- INFERIOR LEADS : Confirmed by: Regis Gutierrez MD 13-Dec-2017 07:49:35
== END 2017-12-13 04:50 | disposition home or self-care (01) ==
LOC: ER 03:40
DX: R07.9 Chest pain, unspecified (principal); M54.2 Cervicalgia; F17.200 Nicotine dependence, unspecified, uncomplicated; I10 Essential (primary) hypertension; Z88.6 Allergy status to analgesic agent
CPT/HCPCS: 36415; 71045; 80053; 83880; 84484; 84703; 85025; 93005; 93010; 99285

== ENCOUNTER 2018-09-27 17:28 | Emergency (ER) | payer SELFPAY ==
[2018-09-27] MEDS ORDERED: KETOROLAC TROMETHAMINE 60 MG/2 ML SDV IM ONE (20:04)
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
[2018-09-27 21:27] VITALS: BP 151/87
== END 2018-09-27 21:27 | disposition home or self-care (01) ==
LOC: ER 17:28
DX: R07.81 Pleurodynia (principal); V87.7XXD Person injured in collision between other specified motor vehicles (traffic), subsequent encounter; F17.200 Nicotine dependence, unspecified, uncomplicated; I10 Essential (primary) hypertension; J45.909 Unspecified asthma, uncomplicated
CPT/HCPCS: 99283; 96372; 71111; J1885

== ENCOUNTER 2019-08-15 15:57 | Emergency (ER) | payer SELFPAY ==
--- NOTE | 2019-08-15 16:52 | ER Document Report ---
ED Medical Screen (RME) - General Chief Complaint: Fever Stated Complaint: FEVER,VOMITING,DIARR Time Seen by Provider: 08/15/19 16:49 TRAVEL OUTSIDE OF THE [place] IN LAST 30 DAYS: No - HPI Notes: 08/15/19 16:51 Patient is a 44-year-old female presents complaining of nasal congestion/discharge, dry cough fevers, nausea/vomiting/diarrhea over the past 6 days. Patient states that she has not been able to keep any fluids or food down. No chest pain. I have treated and performed a rapid initial assessment of this patient. A comprehensive ED assessment and evaluation of the patient, analysis of test re sults and completion of medical decision making process will be conducted by additional ED providers. PHYSICAL EXAMINATION: GENERAL: Well-appearing, well-nourished and in no acute distress. A&Ox4. Answers questions appropriately. Lungs: wheeze Rt lung. no retractions Abd: grossly non-tender. limited exam in triage. - Related Data Allergies/Adverse Reactions: hydromorphone [From Dilaudid] Adverse Reaction (Severe, Verified 08/15/19 16:47) Anxiety ibuprofen Adverse Reaction (Intermediate, Verified 08/15/19 16:47) Vomiting Past Medical History - Past Medical History Cardiac Medical History: Reports: Hx Hypertension Pulmonary Medical History: Reports: Hx Asthma Renal/ Medical History: Denies: Hx Peritoneal Dialysis Past Surgical History: Reports: Hx Section, Hx Cholecystectomy, Hx Hysterectomy - Immunizations Hx Diphtheria, Pertussis, Tetanus Vaccination: Yes Physical Exam - Vital signs Vitals: Temp Pulse Resp BP Pulse Ox 98.6 F 73 18 138/110 H 97 08/15/19 16:08 08/15/19 16:08 08/15/19 16:08 08/15/19 16:08 08/15/19 16:08 Course - Vital Signs Vital signs: Temp Pulse Resp BP Pulse Ox 98.6 F 73 18 138/110 H 97 08/15/19 16:08 08/15/19 16:08 08/15/19 16:08 08/15/19 16:08 08/15/19 16:08
[2019-08-15] MEDS ORDERED: IPRATROPIUM/ALBUTEROL 0.5-2.5 MG/3 ML AMPUL NEB ONE (16:53)
[2019-08-15] MEDS ORDERED: METHYLPREDNISOLONE INJ 125 MG/2 ML SDV IV ONE (16:53)
[2019-08-15] MEDS ORDERED: NORMAL SALINE 1000 ML 1,000 ML IV ONE (16:54)
[2019-08-15] MEDS ORDERED: ONDANSETRON 4 MG TAB.RAPDIS PO ONE (16:54)
[2019-08-15 17:50] LABS: ABSOLUTE BASOPHILS # (AUTO) 0.1 10^3/uL (0.0-0.2); ABSOLUTE LYMPHOCYTES (AUTO) 2.5 10^3/uL (0.5-4.7); ABSOLUTE MONOCYTES (AUTO) 0.5 10^3/uL (0.1-1.4); ABSOLUTE NEUT (AUTO) 2.7 10^3/uL (1.7-8.2); BASOPHILS % (AUTO) 1.5 % (0-2); EOSINOPHILS % (AUTO) 0.1 % (0-6); HEMATOCRIT 45.1 % (36.0-47.0); HEMOGLOBIN 15.2 g/dL (12.0-15.5); LYMPHOCYTES % (AUTO) 43.2 % (13-45); MEAN CORPUSCULAR HEMOGLOBIN 29.6 pg (27.0-33.4); MEAN CORPUSCULAR HGB CONC 33.8 g/dL (32.0-36.0); MEAN CORPUSCULAR VOLUME 87 fl (80-97); MONOCYTES % (AUTO) 8.6 % (3-13); PLATELET COUNT 253 10^3/uL (150-450); RED BLOOD COUNT 5.15 10^6/uL (3.72-5.28); RED CELL DISTRIBUTION WIDTH 14.2 % (11.5-14.0); SEGMENTED NEUTROPHILS % (AUTO) 46.6 % (42-78); TOTAL CELLS COUNTED % (AUTO) 100 %; WHITE BLOOD COUNT 5.9 10^3/uL (4.0-10.5)
--- NOTE | 2019-08-15 17:50 | RADIOLOGY REPORT (SQ) ---
EXAM DESCRIPTION: CHEST 2 VIEWS COMPLETED DATE/TIME: 08/15/2019 5:29 pm REASON FOR STUDY: cough COMPARISON: 07/22/2017 EXAM PARAMETERS: NUMBER OF VIEWS: two views TECHNIQUE: Digital Frontal and Lateral radiographic views of the chest acquired. RADIATION DOSE: NA LIMITATIONS: none FINDINGS: LUNGS AND PLEURA: No opacities, masses or pneumothorax. No pleural effusion. MEDIASTINUM AND HILAR STRUCTURES: No masses or contour abnormalities. HEART AND VASCULAR STRUCTURES: Cardiomegaly. BONES: Disc degenerative disease of the thoracic spine. HARDWARE: None in the chest. OTHER: No other significant finding. IMPRESSION: Cardiomegaly without acute abnormality of the lungs. No focal airspace opacity. TECHNICAL DOCUMENTATION: JOB ID: [id number] [email or web address] All Rights Reserved Reading location - IP/workstation name: [email or web address]
--- NOTE | 2019-08-15 18:07 | ER Document Report ---
ED GI/ - General Chief Complaint: Nausea/Vomiting/Diarrhea Stated Complaint: FEVER,VOMITING,DIARR Time Seen by Provider: 08/15/19 16:49 Notes: Patient is a 44-year-old female who presents emergency department with a chief complaint of nausea, vomiting and diarrhea. Patient reports she has had nausea vomiting and diarrhea for the past 6 days. Patient reports she does vomit multiple times per day and is unable to keep any liquids or food down it. Patient reports that she does have about 8-10 episodes of diarrhea per day. Patient denies any recent out of country travel. Patient reports that she does work at a [employer] and that multiple employees were diagnosed with the flu and did have similar symptoms. Patient also reports nasal congestion with a productive cough. Patient reports she did start to use Mucinex DM which does seem to help break up the mucus. Patient reports that she does start to cough up the mucus which makes her gag and then vomit. Patient denies blood in the vomitus or stool. Patient denies fever. Patient denies significant past medical history. Patient reports she has had her gallbladder out. Patient reports generalized abdominal cramping that occurs before vomiting and before having a bowel movement. TRAVEL OUTSIDE OF THE [place] IN LAST 30 DAYS: No - Related Data Allergies/Adverse Reactions: hydromorphone [From Dilaudid] Adverse Reaction (Severe, Verified 08/15/19 16:47) Anxiety ibuprofen Adverse Reaction (Intermediate, Verified 08/15/19 16:47) Vomiting Past Medical History - General Information source: Patient - Social History Smoking Status: Current Every Day Smoker Chew tobacco use (# tins/day): No Frequency of alcohol use: None Drug Abuse: None Lives with: Family Family History: Reviewed & Not Pertinent Patient has suicidal ideation: No Patient has homicidal ideation: No - Past Medical History Cardiac Medical History: Reports: Hx Hypertension Pulmonary Medical History: Reports: Hx Asthma EENT Medical History: Reports: None Neurological Medical History: Reports: None Endocrine Medical History: Reports: None Renal/ Medical History: Reports: None. Denies: Hx Peritoneal Dialysis Malignancy Medical History: Reports: None GI Medical History: Reports: None Musculoskeletal Medical History: Reports None Skin Medical History: Reports None Psychiatric Medical History: Reports: None Traumatic Medical History: Reports: None Infectious Medical History: Reports: None Past Surgical History: Reports: Hx Section, Hx Cholecystectomy, Hx Hysterectomy - Immunizations Hx Diphtheria, Pertussis, Tetanus Vaccination: Yes Review of Systems - Review of Systems Constitutional: See HPI EENT: See HPI Cardiovascular: No symptoms reported Respiratory: See HPI Gastrointestinal: See HPI Genitourinary: No symptoms reported Female Genitourinary: No symptoms reported Musculoskeletal: No symptoms reported Skin: No symptoms reported Hematologic/Lymphatic: No symptoms reported Neurological/Psychological: No symptoms reported Physical Exam - Vital signs Vitals: Temp Pulse Resp BP Pulse Ox 98.6 F 73 18 138/110 H 97 08/15/19 16:08 08/15/19 16:08 08/15/19 16:08 08/15/19 16:08 08/15/19 16:08 Interpretation: Hypertensive - Notes Notes: GENERAL: Well-nourished female. HEAD: Atraumatic, normocephalic. EYES: Pupils equal round and reactive to light, extraocular movements intact, sclera anicteric, conjunctiva are normal. ENT: Nares patent, oropharynx clear without exudates. Moist mucous membranes. NECK: Normal range of motion, supple without lymphadenopathy or JVD. LUNGS: Expiratory wheeze noted throughout all lung cárdenas with scattered rhonchi. Of the rhonchi does partially clear with cough. Patient has a persistent congested cough during examination. HEART: Regular rate and rhythm without murmurs, rubs or gallops. ABDOMEN: Soft, obese, round, nontender, hyperactive bowel sounds. No guarding, no rebound. No masses appreciated. BACK: No cervical, thoracic, lumbar midline tenderness. No saddle anesthesia, normal distal neurovascular exam. GENITOURINARY: Deferred. EXTREMITIES: Normal range of motion, no pitting or edema. No clubbing or cyanosis. NEUROLOGICAL: Cranial nerves II through XII grossly intact. Normal speech, normal gait. PSYCH: Normal mood, normal affect. SKIN: Warm, Dry, normal turgor, no rashes or lesions noted. Course - Re-evaluation Re-evalutation: 08/15/19 19:10 Upon reevaluation patient is actively vomiting. It does appear that this is a copious amount of mucus. Patient reports that she did attempt to eat chicken that her family member had brought but then started to vomit. I did inform the patient to refrain from eating until we can get her nausea under control. Patient verbalizes understanding. Patient is actively receiving IV hydration. Will order a dose of IM Phenergan. 08/15/19 20:14 Patient reports feeling better after receiving the Phenergan. Patient's cough has subsided as well as the vomiting. Patient still receiving IV fluids. Patient reports feeling slightly better. Urinalysis and influenza testing pending. 08/15/19 21:06 After receiving the Phenergan patient has not vomited. Patient is sipping on propel water. Will complete this p.o. challenge and if she is able to tolerate this will discharge home. I did discuss the results of the test with the patient and diagnosis to include an upper respiratory infection with nausea vomiting and diarrhea. Patient has not had a stool since being here in the [facility] department. Patient was given strict return precautions. 08/15/19 21:06 Patient is not tachycardic, hypotensive or febrile at this time. 08/15/19 21:55 Patient is tolerating liquids without vomiting. Patient nontoxic-appearing and stable for discharge. Patient given strict return precautions. - Vital Signs Vital signs: Temp Pulse Resp BP Pulse Ox 98.3 F 77 18 148/88 H 95 08/15/19 21:47 08/15/19 21:47 08/15/19 21:47 08/15/19 21:47 08/15/19 21:47 - Laboratory Result Diagrams: 08/15/19 17:33 08/15/19 17:33 Laboratory results interpreted by me: 08/15/19 08/15/19 08/15/19 17:33 17:33 19:27 RDW 14.2 H Potassium 3.4 L AST 62 H Total Protein 9.0 H Urine Protein 100 H Urine Ketones 20 H Urine Bilirubin SMALL H Urine Urobilinogen 2.0 H 08/15/19 21:14 Patient's blood work does not show significant leukocytosis or anemia. Patient's potassium was slightly low at 3.4. Patient's BUN and creatinine are n ormal. Patient has slight elevation in her AST. Patient's urinalysis showed small amount of ketones. Negative influenza. Laboratory 08/15/19 08/15/19 08/15/19 17:33 17:33 19:22 WBC 5.9 RBC 5.15 Hgb 15.2 Hct 45.1 MCV 87 MCH 29.6 MCHC 33.8 RDW 14.2 H Plt Count 253 Lymph % (Auto) 43.2 [place] % (Auto) 8.6 Eos % (Auto) 0.1 Baso % (Auto) 1.5 Absolute Neuts (auto) 2.7 Absolute Lymphs (auto) 2.5 Absolute Monos (auto) 0.5 Absolute Eos (auto) 0.0 Absolute Basos (auto) 0.1 Seg Neutrophils % 46.6 Sodium 143.3 Potassium 3.4 L Chloride 99 Carbon Dioxide 27 Anion Gap 17 BUN 10 Creatinine 0.80 Est GFR ( Amer) > 60 Est GFR (MDRD) Non-Af > 60 Glucose 89 Calcium 10.2 Total Bilirubin 0.6 Direct Bilirubin 0.4 Neonat Total Bilirubin Not Reportable Neonat Direct Bilirubin Not Reportable Neonat Indirect Bili Not Reportable AST 62 H ALT 60 Alkaline Phosphatase 100 Total Protein 9.0 H Albumin 4.9 Lipase 207.8 Urine Color Urine Appearance Urine pH Ur Specific [place] Urine Protein Urine Glucose (UA) Urine Ketones Urine Blood Urine Nitrite (Reflex) Urine Bilirubin Urine Urobilinogen Leukocyte Esterase Rfl Urine RBC (Auto) U Hyaline Cast (Auto) Urine Bacteria (Auto) Urine WBC (Reflex) Squamous Epi Cells Auto Urine Mucus (Auto) Urine Ascorbic Acid Influenza A (Rapid) NEGATIVE Influenza B (Rapid) NEGATIVE 08/15/19 19:27 WBC RBC Hgb Hct MCV MCH MCHC RDW Plt Count Lymph % (Auto) [place] % (Auto) Eos % (Auto) Baso % (Auto) Absolute Neuts (auto) Absolute Lymphs (auto) Absolute Monos (auto) Absolute Eos (auto) Absolute Basos (auto) Seg Neutrophils % Sodium Potassium Chloride Carbon Dioxide Anion Gap BUN Creatinine Est GFR ( Amer) Est GFR (MDRD) Non-Af Glucose Calcium Total Bilirubin Direct Bilirubin Neonat Total Bilirubin Neonat Direct Bilirubin Neonat Indirect Bili AST ALT Alkaline Phosphatase Total Protein Albumin Lipase Urine Color DARK YELLOW Urine Appearance CLOUDY Urine pH 5.0 Ur Specific [place] 1.038 Urine Protein 100 H Urine Glucose (UA) NEGATIVE Urine Ketones 20 H Urine Blood NEGATIVE Urine Nitrite (Reflex) NEGATIVE Urine Bilirubin SMALL H Urine Urobilinogen 2.0 H Leukocyte Esterase Rfl NEGATIVE Urine RBC (Auto) 10 U Hyaline Cast (Auto) 35 Urine Bacteria (Auto) TRACE Urine WBC (Reflex) 6 Squamous Epi Cells Auto 51 Urine Mucus (Auto) MANY Urine Ascorbic Acid NEGATIVE Influenza A (Rapid) Influenza B (Rapid) Discharge - Discharge Clinical Impression: Nausea vomiting and diarrhea, Chills (without fever), Productive cough URI (upper respiratory infection) Qualifiers: URI type: unspecified viral URI Qualified Code(s): J06.9 - Acute upper respiratory infection, unspecified Condition: Stable Disposition: HOME, SELF-CARE Instructions: Antinausea Medication ([facility]), Intravenous (IV) Fluids ([facility]), Upper Respiratory Illness ([facility]), Viral Syndrome ([facility]) Additional Instructions: *Today was seen in the emergency department for nausea, vomiting and diarrhea. After receiving IV fluids you have reported feeling much better. I will prescribe you anti-nausea medication to go home with. Please take this as needed. Over the next 24 to 48 hours I would focus on hydration and a clear liquid diet. Afterwards you can advance to a bland diet also called a brat diet which is bananas, rice, applesauce and toast. Would avoid spicy or greasy foods over the next 48 hours. Please rest. *If you start to have some diarrhea you can take an [id number] Imodium. *You are also being diagnosed with an upper respiratory infection. I will give you an albuterol inhaler to go home with. You can use 2 puffs every 4 hours as needed for wheezing or shortness of breath. Please refrain from smoking or surrounding yourself with cigarette smoke as this can exacerbate your symptoms. Your chest x-ray did not show any signs of infection such as pneumonia. UPPER RESPIRATORY ILLNESS: You have a viral infection of the respiratory passages -- a "cold." This common infection causes nasal congestion, drainage, and often sore throat and cough. It is highly contagious. The disease usually lasts about 10 to 14 days. There is no "cure" for the viral infection -- it must run its course. If there is a complication, such as bacterial infection in the nose, sinuses, middl e ear, or bronchial tubes, antibiotics may be required. The antibiotics won't affect the virus. Drink plenty of fluids. A humidifier may help. An expectorant medication or decongestant may make you more comfortable. Use acetaminophen or ibuprofen for fever or aches. See the doctor if fever persists over two days, if there is any significant worsening of your symptoms, or if you simply fail to improve as expected. INHALED BRONCHODILATORS: You have received a treatment of and/or prescription for an inhaled bronchodilator -- a medication which stimulates the airways in the lung to dilate. This improves the flow of air in asthma, bronchitis, and emphysema. These medicines have some similarity to adrenaline, and can cause similar side effects: shakiness, racing heart, and a sense of nervousness. These side effects decrease with time. Contact your doctor if these side effects are severe. Do not over-use the medicine. Too-frequent use of the inhaler may make it ineffective. Call your doctor if the inhaler is not controlling your symptoms at the prescribed doses. USE OF ACETAMINOPHEN (Tylenol): Acetaminophen may be taken for pain relief or fever control. It's much safer than aspirin, offering a wider range of "safe" dosages. It is safe during . Some brand names are Tylenol, Panadol, Datril, Anacin 3, Tempra, and Liquiprin. Acetaminophen can be repeated every four hours. The following are maximum recommended dosages: >89 pounds or adults 650 mg to 900 mg Acetaminophen can be repeated every four hours. Maximum dose not to exceed 4000 mg a day. SMOKING: If you smoke, you should stop smoking. The tar and chemicals in cigarette smoke are harmful. Smoking has been shown to cause: emphysema chronic bronchitis lung cancer mouth and throat cancer stomach and pancreas cancer premature aging defects In addition, smoking increases ear and lung infections in children of smokers. FOLLOW-UP CARE: If you have been referred to a physician for follow-up care, call the physicians office for an appointment as you were instructed or within the next two days. If you experience worsening or a significant change in your symptoms, notify the physician immediately or return to the Emergency Department at any time for re-evaluation. VOMITING: Vomiting (or nausea without vomiting) can be caused by many other different problems. It can mean that something's wrong with the stomach, such as ulcers or inflammation or the intestinal tract, such as appendicitis. But it can also be a symptom of a problem that has nothing to do with the stomach or intestines. Vomiting is common with severe headaches, earaches, tonsillitis, and kidney infections, etc. We see it with pneumonia or heart attacks. Drugs can cause nausea and vomiting. Many abdominal problems cause vomiting; for example, gallstones, kidney stones, pancreatitis, and intestinal obstruction (blocked bowels). In most cases, curing the vomiting depends on fixing the problem that caused it. For temporary relief, we may use an anti-nausea medicine. For home use, we can prescribe suppositories, chewable pills, pills that dissolve in the mouth, or liquid anti-nausea drugs. If the vomiting seems to be caused by a problem in the stomach, acid-suppressing drugs may be prescribed as well. It's important to avoid dehydration. Sip small amounts of clear liquids (soft drinks, tea, broth, etc) . Try to take fluids frequently even if you are vomiting to prevent dehydration. Take increasing amounts of fluid and when liquids are being consumed successfully, advance to small amounts of bland food (toast, soups, mashed potatoes, etc.) until you are able to resume a regular diet. Avoid aspirin, tobacco, and alcohol. If the vomiting worsens, if the problem that's making you vomit worsens, or if there's evidence of bleeding in the stomach (such as black, tarry stool, or bloody or black vomit), you should return immediately. Also, return if abdominal pain worsens or becomes localized to one area or you develop high fever. Call your doctor if you aren't improved in 24 hours. DIARRHEA, NON-SPECIFIC: Diarrhea means frequent, watery stools. There are many causes. Any problem that keeps the intestinal tract from absorbing water from the stool can lead to diarrhea. A sudden new diarrhea problem is usually caused by a virus, food sensitivity, toxic bacteria, or drugs. In this case, we expect the problem to go away soon. Testing is done only if you seem seriously ill from the diarrhea. If you have chronic diarrhea, or diarrhea that keeps coming back, we need to find out why. Chronic diarrhea can be due to inflammation of the bowels such as Crohn's disease or ulcerative colitis, food sensitivity such as intolerance to lactose or wheat protein, irritable bowel syndrome, and other problems. If your diarrhea is a significant problem but it's not clear why you have it, we'll refer you to a specialist for further testing. During an episode of diarrhea, drink small amounts (two to six ounces) of clear liquids (soft drinks, sport drinks, herb teas, broth, etc). Take fluids frequently to prevent dehydration. It's usually not a problem to take mild anti- diarrhea medication such as Kaopectate or Pepto-Bismol. As the diarrhea eases, advance to small amounts of bland food (mashed potato, toast) for 24 hours. Call the physician if blood appears in your vomit or stool, if vomiting lasts longer than 24 hours, if the abdominal pain worsens or becomes localized to one area, if you develop high fever, or if you become lightheaded and weak. VIRAL SYNDROME: The physician has diagnosed a viral infection. Viruses not only cause "colds," but can cause many different symptoms including generalized aching, fever, headache, cough, diarrhea, nausea, vomiting, and fatigue. The treatment, for the most part, is simply relief of symptoms. This means that antibiotics are usually not given. Rest, fluids, pain medications and, occasionally, medication for the specific symptoms that are most bothersome will be prescribed. Use good handwashing to avoid passing the virus to others. Shared toys should be cleaned with disinfectant. Clean the toilets, sinks, and counter surfaces in bathrooms. Launder clothing in hot water. Contact the physician if you develop any new or unusual symptoms such as severe headache, stiff neck, high fever, chest pain, productive cough, or shortness of breath. You should be rechecked if you don't see marked improvement within seven to 10 days. FOLLOW-UP CARE: If you have been referred to a physician for follow-up care, call the physicians office for an appointment as you were instructed or within the next two days. If you experience worsening or a significant change in your symptoms, notify the physician immediately or return to the Emergency Department at any time for re-evaluation. Prescriptions: Promethazine HCl [Phenergan 25 mg Tablet] 1 tab PO Q6H PRN #15 tablet PRN Reason: Forms: Smoking Cessation Education, Return to Work
[2019-08-15 18:14] LABS: ALBUMIN 4.9 g/dL (3.5-5.0); ALKALINE PHOSPHATASE 100 U/L (38-126); ANION GAP 17 (5-19); ASPARTATE AMINO TRANSFERASE 62 U/L (14-36); BILIRUBIN,DIRECT 0.4 mg/dL (0.0-0.4); BILIRUBIN,TOTAL 0.6 mg/dL (0.2-1.3); BLOOD UREA NITROGEN 10 mg/dL (7-20); CALCIUM 10.2 mg/dL (8.4-10.2); CARBON DIOXIDE 27 mmol/L (22-30); CHLORIDE 99 mmol/L (98-107); GLUCOSE 89 mg/dL (75-110); POTASSIUM 3.4 mmol/L (3.6-5.0)
[2019-08-15] MEDS ORDERED: PROMETHAZINE HCL INJ 25 MG/1 ML VIAL IM ONE (19:10)
[2019-08-15 19:56] LABS: APPEARANCE,URINE CLOUDY; BILIRUBIN,URINE SMALL (NEGATIVE); GLUCOSE, URINE NEGATIVE (NEGATIVE); KETONES,URINE 20 mg/dL (NEGATIVE); PROTEIN,URINE 100 mg/dL (NEGATIVE); URINE SPECIFIC GRAVITY 1.038
[2019-08-15 20:16] LABS: COLOR,URINE DARK YELLOW
[2019-08-15 20:23] LABS: A TYPE INFLUENZA AG NEGATIVE (NEGATIVE); B INFLUENZA AG NEGATIVE (NEGATIVE)
[2019-08-15] MEDS ORDERED: ALBUTEROL SULFATE HFA (90 MCG/PUFF) 8 GM MDI (1 MDI/ER DISP) IH PRN (21:10)
[2019-08-15] MEDS ORDERED: ONDANSETRON ODT 4 MG TAB (6 TAB/ER DISP) PO PRN (21:10)
[2019-08-15 21:50] VITALS: BP 148/88
== END 2019-08-15 21:50 | disposition home or self-care (01) ==
LOC: ER 15:57
DX: J06.9 Acute upper respiratory infection, unspecified (principal); R11.2 Nausea with vomiting, unspecified; R19.7 Diarrhea, unspecified; R09.81 Nasal congestion; R05 Cough; R10.84 Generalized abdominal pain; R68.83 Chills (without fever); F17.200 Nicotine dependence, unspecified, uncomplicated; I10 Essential (primary) hypertension; J45.909 Unspecified asthma, uncomplicated
CPT/HCPCS: 94640; 99284; 96372; 96361; 96374; 36415; 83690; 85025; 80053; 81001; 87804; 71046; S0119; J2930; J2550; J7030; J3490; J7620

== ENCOUNTER 2019-12-19 15:23 | Emergency (ER) | payer SELFPAY ==
--- NOTE | 2019-12-19 16:13 | ER Document Report ---
ED GI/ - General Mode of Arrival: Ambulatory Information source: Patient TRAVEL OUTSIDE OF THE [place] IN LAST 30 DAYS: No - HPI Patient complains to provider of: Abdominal pain, Diarrhea, Vomiting Onset: Other - 5 days Timing/Duration: Persistent Quality of pain: Burning Pain Level: 5 Location: Other - Upper abdomen Associated symptoms: Diarrhea, Nausea, Vomiting. denies: Urinary hesitancy, Urinary frequency, Urinary retention Exacerbated by: Denies Relieved by: Denies Similar symptoms previously: No Recently seen / treated by doctor: No <JO RENNER - Last Filed: 12/19/19 20:35> <MARIO VICENTE - Last Filed: 12/19/19 22:12> - General Chief Complaint: Nausea/Vomiting/Diarrhea Stated Complaint: NAUSEA/VOMITING Time Seen by Provider: 12/19/19 15:47 Notes: Patient presents with a 5-day history of nausea vomiting diarrhea. Patient developed abdominal tenderness to the upper abdomen that radiates around to the right lower thoracic area. Patient reports subjective fever at home. No urinary symptoms. Patient states she is vomited 7 times today and had diarrhea 6 episodes. Patient describes pain as a burning sensation. (JO RENNER) - Related Data Allergies/Adverse Reactions: hydromorphone [From Dilaudid] Adverse Reaction (Severe, Verified 08/15/19 16:47) Anxiety ibuprofen Adverse Reaction (Intermediate, Verified 08/15/19 16:47) Vomiting Past Medical History - General Information source: Patient - Social History Smoking Status: Current Every Day Smoker Frequency of alcohol use: None Drug Abuse: Marijuana Lives with: Family Family History: Reviewed & Not Pertinent Patient has homicidal ideation: No - Past Medical History Cardiac Medical History: Reports: Hx Hypertension Pulmonary Medical History: Reports: Hx Asthma Renal/ Medical History: Denies: Hx Peritoneal Dialysis Past Surgical History: Reports: Hx Section, Hx Cholecystectomy, Hx Hysterectomy - Immunizations Hx Diphtheria, Pertussis, Tetanus Vaccination: Yes <JO RENNER - Last Filed: 12/19/19 20:35> Review of Systems - Review of Systems Constitutional: Fever - Subjective EENT: No symptoms reported Cardiovascular: No symptoms reported. denies: Chest pain Respiratory: No symptoms reported. denies: Cough, Short of breath Gastrointestinal: Abdominal pain, Diarrhea, Nausea, Vomiting Genitourinary: No symptoms reported Female Genitourinary: No symptoms reported Musculoskeletal: Back pain Skin: No symptoms reported Hematologic/Lymphatic: No symptoms reported Neurological/Psychological: No symptoms reported <JO RENNER - Last Filed: 12/19/19 20:35> Physical Exam - General General appearance: Appears well, Alert In distress: None - HEENT Head: Normocephalic, Atraumatic Eyes: Normal Conjunctiva: Normal Nasal: Normal Mouth/Lips: Normal Mucous membranes: Normal Neck: Normal, Supple. No: Lymphadenopathy - Respiratory Respiratory status: No respiratory distress Chest status: Nontender Breath sounds: Normal. No: Rales, Rhonchi, Stridor, Wheezing Chest palpation: Normal - Cardiovascular Rhythm: Regular Heart sounds: S1 appreciated, S2 appreciated Murmur: No - Abdominal Inspection: Morbidly Obese Distension: No distension Bowel sounds: Normal Tenderness: Tender - Upper abdominal tenderness Organomegaly: No organomegaly - Back Back: Normal, Nontender. No: CVA tenderness - Extremities General upper extremity: Normal inspection, Normal strength General lower extremity: Normal inspection, Normal strength - Neurological Neuro grossly intact: Yes Cognition: Normal [place] Coma Scale Eye Opening: Spontaneous [place] Coma Scale Verbal: Oriented [place] Coma Scale Motor: Obeys Commands [place] Coma Scale Total: 15 - Psychological Associated symptoms: Normal affect, Normal mood - Skin Skin Temperature: Warm Skin Moisture: Dry Skin Color: Normal <JO RENNER - Last Filed: 12/19/19 20:35> - Vital signs Vitals: Temp Pulse Resp BP Pulse Ox 99 F 86 18 156/101 H 96 12/19/19 15:24 12/19/19 15:24 12/19/19 15:24 12/19/19 15:24 12/19/19 15:24 Course - Laboratory Result Diagrams: 12/19/19 17:20 12/19/19 17:20 <ZURDOJO - Last Filed: 12/19/19 20:35> - Laboratory Result Diagrams: 12/19/19 17:20 12/19/19 17:20 <MARIO VICENTE - Last Filed: 12/19/19 22:12> - Re-evaluation Re-evalutation: 12/19/19 19:48 Patient complains of persistent abdominal tenderness, pain medication ordered. Additional imaging studies ordered at this time. 12/19/19 20:35 Report and handoff given to RODOLFO Pena. Nursing staff updated regarding plan of care (JO RENNER) 12/19/19 Urinalysis indicates infection including positive nitrites. Culture was placed. CT indicates right-sided pyelonephritis which is consistent with patient's presentation. There is no obstructing stone noted, there is no acute abnormality otherwise. Patient does have mild leukocytosis and low-grade fever here. On my evaluation patient is alert, talkative, playing on her phone, vital signs are unremarkable with blood pressure of systolic at 127, she is not tachycardic, she states she feels much improved already. Patient has received potassium IV, patient is requesting to go home after IV antibiotics. Patient was given her second dose of potassium orally, her EKG does not show peaked T waves or prolonged QT. Her magnesium is unremarkable. Suspect this was transient with her vomiting and diarrhea. Patient will supplement potassium at home instead of taking pills for this after we discussed this. Patient will be placed on antibiotics, provided with symptom management, discussed follow-up and return precautions. Patient states appreciation and agreement with plan. Stab le and well-appearing at time of discharge. (MARIO VICENTE) - Vital Signs Vital signs: Temp Pulse Resp BP Pulse Ox 98.6 F 71 18 127/59 H 96 12/19/19 21:02 12/19/19 21:02 12/19/19 15:24 12/19/19 21:02 12/19/19 21:02 - Laboratory Laboratory results interpreted by me: 12/19/19 12/19/19 12/19/19 17:20 17:20 19:10 WBC 12.6 H Absolute Neuts (auto) 9.1 H Sodium 136.4 L Potassium 2.8 L* Chloride 91 L Carbon Dioxide 39 H BUN 5 L Urine Ketones 20 H Urine Blood MODERATE H Urine Nitrite POSITIVE H Ur Leukocyte Esterase TRACE H Discharge <JO RENNER - Last Filed: 12/19/19 20:35> <MARIO VICENTE - Last Filed: 12/19/19 22:12> - Discharge Clinical Impression: Nausea vomiting and diarrhea Abdominal pain Qualifiers: Abdominal location: unspecified location Qualified Code(s): R10.9 - Unspecified abdominal pain Condition: Stable Disposition: HOME, SELF-CARE Instructions: Oral Narcotic Medication ([facility]) Additional Instructions: Your evaluation is showing that you have a kidney infection causing your symptoms. Take the antibiotics as prescribed, take the nausea medication provided, take the pain medication if needed. Symptoms should rapidly resolve. Drink plenty fluids and rest. Increase potassium in your diet over the next several days as we discussed. Have this rechecked with primary care. Come back if you are worse including severe worsening pain, spiking higher fevers, uncontrolled vomiting, or any other concerning or worsening symptoms. Prescriptions: Cephalexin Monohydrate [Keflex 500 mg Capsule] 500 mg PO QID #28 capsule Ondansetron [Zofran Odt 4 mg Tablet] 1 - 2 tab PO Q4H PRN #15 tab.rapdis PRN Reason: For Nausea/Vomiting Forms: Return to Work
[2019-12-19] MEDS ORDERED: NORMAL SALINE 1000 ML 1,000 ML IV ONE ×2 (16:14→19:50)
[2019-12-19] MEDS ORDERED: ONDANSETRON HCL INJ/PF 4 MG/2 ML SDV IV ONE (16:14)
[2019-12-19 17:51] LABS: ALBUMIN 3.9 g/dL (3.5-5.0); ALKALINE PHOSPHATASE 126 U/L (38-126); ANION GAP 6 (5-19); ASPARTATE AMINO TRANSFERASE 27 U/L (14-36); BILIRUBIN,DIRECT 0.1 mg/dL (0.0-0.4); BILIRUBIN,TOTAL 0.7 mg/dL (0.2-1.3); BLOOD UREA NITROGEN 5 mg/dL (7-20); CALCIUM 9.1 mg/dL (8.4-10.2); CARBON DIOXIDE 39 mmol/L (22-30); CHLORIDE 91 mmol/L (98-107); GLUCOSE 89 mg/dL (75-110); TOTAL PROTEIN 7.3 g/dL (6.3-8.2)
[2019-12-19 17:52] LABS: ABSOLUTE BASOPHILS # (AUTO) 0.1 10^3/uL (0.0-0.2); ABSOLUTE LYMPHOCYTES (AUTO) 2.3 10^3/uL (0.5-4.7); ABSOLUTE MONOCYTES (AUTO) 1.2 10^3/uL (0.1-1.4); ABSOLUTE NEUT (AUTO) 9.1 10^3/uL (1.7-8.2); BASOPHILS % (AUTO) 0.5 % (0-2); EOSINOPHILS % (AUTO) 0.1 % (0-6); HEMATOCRIT 39.2 % (36.0-47.0); HEMOGLOBIN 13.3 g/dL (12.0-15.5); MEAN CORPUSCULAR VOLUME 88 fl (80-97); MONOCYTES % (AUTO) 9.6 % (3-13); PLATELET COUNT 251 10^3/uL (150-450); RED BLOOD COUNT 4.45 10^6/uL (3.72-5.28); RED CELL DISTRIBUTION WIDTH 13.7 % (11.5-14.0); SEGMENTED NEUTROPHILS % (AUTO) 71.8 % (42-78); TOTAL CELLS COUNTED % (AUTO) 100 %; WHITE BLOOD COUNT 12.6 10^3/uL (4.0-10.5)
[2019-12-19 18:02] LABS: POTASSIUM 2.8 mmol/L (3.6-5.0)
[2019-12-19] MEDS ORDERED: FENTANYL CITRATE INJ/PF 100 MCG/2 ML AMPUL IV ONE (18:33)
[2019-12-19] MEDS: POTASSI CL 20 MEQ/50 ML RIDER 20 MEQ/50 ML RTUPB IV SCH ×2 (19:34→22:08)
[2019-12-19] MEDS ORDERED: ACETAMINOPHEN 325 MG TABLET PO ONE (19:50)
--- NOTE | 2019-12-19 20:56 | RADIOLOGY REPORT (SQ) ---
EXAM DESCRIPTION: US ABDOMEN LIMITED COMPLETED DATE/TME: 12/19/2019 16:13 CLINICAL HISTORY: 44 years Female upper abd pain, N/v/d COMPARISON: None. TECHNIQUE: Transabdominal grayscale imaging were performed to evaluate the right upper quadrant. FINDINGS: Study limited by body habitus and bowel gas. Echogenic fatty liver. Pancreas is not well seen. Gallbladder is absent. Right kidney measures 11.4 x 5.5 cm. No hydronephrosis. Aorta appears normal in caliber. Patent hepatopedal portal vein. Common duct measures 7 mm. IMPRESSION: Study is limited by overlying bowel gas Fatty infiltration of the liver Absent gallbladder
[2019-12-19 21:10] LABS: APPEARANCE,URINE SLIGHTLY-CLOUDY; BILIRUBIN,URINE NEGATIVE (NEGATIVE); COLOR,URINE YELLOW; GLUCOSE, URINE NEGATIVE (NEGATIVE); KETONES,URINE 20 mg/dL (NEGATIVE); LEUKOCYTE ESTERASE,URINE TRACE (NEGATIVE); NITRITE,URINE POSITIVE (NEGATIVE); PROTEIN,URINE NEGATIVE (NEGATIVE); UROBILINOGEN,URINE NEGATIVE mg/dL (<2.0)
--- NOTE | 2019-12-19 21:22 | RADIOLOGY REPORT (SQ) ---
EXAM DESCRIPTION: CT ABDOMEN PELVIS WITH IV CONTRAST COMPLETED DATE/TME: 12/19/2019 8:39 PM CLINICAL HISTORY: abd pain, r flank pain COMPARISON: None Available TECHNIQUE: Contiguous axial images of the abdomen and pelvis were obtained followed by reconstruction images. This exam was performed according to our departmental dose-optimization program, which includes automated exposure control, adjustment of the mA and/or kV according to patient size and/or use of iterative reconstruction technique. FINDINGS: Peripheral areas of abnormal enhancement within the posterior aspect of the right kidney with stranding of the adjacent fat compatible with pyelonephritis. There is no hydronephrosis. Calcifications within the pelvis compatible with phleboliths. The liver, spleen, pancreas and kidneys are otherwise within normal limits. There is no hydronephrosis or renal stones. The gallbladder is unremarkable by CT criteria. Adrenal glands are within normal limits. Aorta is of normal caliber and tapering. There is no free fluid in the abdomen or pelvis. There is no bowel obstruction. The appendix is within normal limits. There is no pericecal inflammation. IMPRESSION: Above findings are compatible with right-sided pyelonephritis. Correlation with laboratory data recommended.
--- NOTE | 2019-12-19 21:24 | EKG REPORT ---
SEVERITY:- NORMAL ECG - SINUS RHYTHM : Confirmed by: Aurora Wright MD 19-Dec-2019 21:24:15
[2019-12-19] MEDS ORDERED: CEFTRIAXONE 1 GM/D5W RTU 1 GM/50 ML RTUPB IV ONE (21:43)
[2019-12-19] MEDS ORDERED: POTASSIUM CHLORIDE 10 MEQ TABLET.ER PO ONE (21:50)
[2019-12-19] MEDS ORDERED: CEFTRIAXONE INJ 1000 MG VIAL IV ONE (21:56)
[2019-12-19] MEDS ORDERED: HYDROCODONE/ACETAMINOPHEN 5-325 MG (6 TAB/ER DISP) PO PRN (22:12)
[2019-12-19] MEDS ORDERED: ONDANSETRON ODT 4 MG TAB (6 TAB/ER DISP) PO PRN (22:12)
[2019-12-19 23:11] VITALS: BP 121/78
== END 2019-12-19 23:19 | disposition home or self-care (01) ==
LOC: ER 15:23
DX: R11.2 Nausea with vomiting, unspecified (principal); R19.7 Diarrhea, unspecified; N12 Tubulo-interstitial nephritis, not specified as acute or chronic; R10.9 Unspecified abdominal pain; R10.819 Abdominal tenderness, unspecified site; M54.9 Dorsalgia, unspecified; R50.9 Fever, unspecified; F17.200 Nicotine dependence, unspecified, uncomplicated; F12.10 Cannabis abuse, uncomplicated; I10 Essential (primary) hypertension; J45.909 Unspecified asthma, uncomplicated; Z90.49 Acquired absence of other specified parts of digestive tract; Z90.710 Acquired absence of both cervix and uterus
CPT/HCPCS: 93005; 99284; 96361; 96375; 96365; 96366; 96367; 36415; 87040; 87086; 83690; 83735; 85025; 87077; 87088; 80053; 81001; 87186; 87150 ×26; 76705; 74177; 93010; J3010; J0696; J2405; J3480; J7030

== ENCOUNTER 2020-05-01 15:55 | Emergency (ER) | payer SELFPAY ==
[2020-05-01 16:01] VITALS: BP 157/93
--- NOTE | 2020-05-01 16:12 | ER Document Report ---
HPI - HPI Time Seen by Provider: 05/01/20 16:00 Pain Level: 4 Context: Patient is a 44-year-old female presents emergency department with a chief complaint of tooth pain to tooth number #3. Patient states that she has had on and off pain for the past few months. She states that she started to have a fever. She also noted that she had some right ankle swelling, but denied any injury or tripping. Denies any past medical history. She does not take any medications. Has been trying Tylenol, but has not had relief of her pain. - ROS Systems Reviewed and Negative: Yes All other systems reviewed and negative - CONSTITUTIONAL Constitutional: REPORTS: Fever. DENIES: Chills - EENT Notes: See HPI. - REPRODUCTIVE Reproductive: DENIES: : - MUSCULOSKELETAL Musculoskeletal: REPORTS: Extremity pain - Right ankle, Swelling - Right ankle - DERM Skin Color: Normal Skin Problems: Rash - Right lateral ankle Past Medical History - Social History Smoking Status: Current Every Day Smoker Frequency of alcohol use: None Drug Abuse: None Family History: Reviewed & Not Pertinent - Past Medical History Cardiac Medical History: Reports: Hx Hypertension Pulmonary Medical History: Reports: Hx Asthma Renal/ Medical History: Denies: Hx Peritoneal Dialysis Past Surgical History: Reports: Hx Section, Hx Cholecystectomy, Hx Hysterectomy - Immunizations Hx Diphtheria, Pertussis, Tetanus Vaccination: Yes Vertical Provider Document - CONSTITUTIONAL Agree With Documented VS: Yes Exam Limitations: No Limitations General Appearance: No Apparent Distress - INFECTION CONTROL TRAVEL OUTSIDE OF THE [place] IN LAST 30 DAYS: No - HEENT HEENT: Atraumatic, Normocephalic, PERRLA - NECK Neck: Normal Inspection - RESPIRATORY Respiratory: Breath Sounds Normal, No Respiratory Distress - CARDIOVASCULAR Cardiovascular: Regular Rate, Regular Rhythm Pulses: Normal: Radial - MUSCULOSKELETAL/EXTREMETIES Musculoskeletal/Extremeties: FROM, Tender - Right ankle, Edema - Very slight to right ankle - NEURO Level of Consciousness: Awake, Alert, Appropriate Motor/Sensory: No Motor Deficit, No Sensory Deficit - DERM Integumentary: Warm, Dry, Rash - Very slight to right ankle Course - Re-evaluation Re-evalutation: 05/01/20 Patient's physical exam and history is most consistent with a infected tooth. Patient is able to swallow, no facial swelling noted, airway is patent, vital signs are normal. I do not suspect Eben's angina, peritonsilar abscess, or airway obstruction. The patient will be started on oral antibiotics. I have given the patient education on their antibiotics. Patient was given instructions to follow-up with a dentist this week. We will give her Augmentin to also cover swelling to her right ankle, as this appears to be cellulitis. I have a low suspicion for DVT. Return precautions were given. Verbal discharge instructions were given. Patient verbalized understanding. Patient is stable for discharge. - Vital Signs Vital signs: Temp Pulse Resp BP Pulse Ox 99.2 F 64 20 157/93 H 99 05/01/20 16:00 05/01/20 16:00 05/01/20 16:00 05/01/20 16:00 05/01/20 16:00 Discharge - Discharge Clinical Impression: Tooth pain, Pain and swelling of right ankle Condition: Stable Disposition: HOME, SELF-CARE Additional Instructions: You were seen today in the emergency department for tooth pain and right ankle pain. You are being started on antibiotics. Take all your antibiotics as prescribed. Follow-up with [facility]. Take the pain medicine for extreme pain. Prescriptions: Amoxicillin/Potassium Clav [Augmentin 875-125 Tablet] 1 tab PO BID #14 tab Hydrocodone/Acetaminophen [[place] 5-325 mg Tablet] 1 tab PO ASDIR PRN #10 tablet PRN Reason: Referrals: [facility] [Provider Group] - Follow up in 1 week
== END 2020-05-01 16:20 | disposition home or self-care (01) ==
LOC: ER 15:55
DX: K08.9 Disorder of teeth and supporting structures, unspecified (principal); M25.571 Pain in right ankle and joints of right foot; F17.200 Nicotine dependence, unspecified, uncomplicated; I10 Essential (primary) hypertension; Z90.49 Acquired absence of other specified parts of digestive tract
CPT/HCPCS: 99284

== ENCOUNTER 2020-05-13 13:27 | Emergency (ER) | payer SELFPAY ==
--- NOTE | 2020-05-13 14:26 | ER Document Report ---
ED Medical Screen (RME) - General Chief Complaint: Leg Pain Stated Complaint: LEG PAIN Time Seen by Provider: 05/13/20 14:19 Mode of Arrival: Wheelchair Information source: Patient Notes: 44-year-old female patient presenting to emergency department chief complaint of left lower extremity pain and swelling. Patient reports pain to the left calf and behind the left knee. She denies any history of DVT or PE. She is not on any blood thinners. She does not take oral contraceptive pills. She has not any recent travel. She is a smoker daily. Exam: Mild swelling noted to left lower extremity, no obvious injury, no obvious erythema. Limited exam due to patient wearing pants in triage. I have greeted and performed a rapid initial assessment of this patient. A comprehensive ED assessment and evaluation of the patient, analysis of test results and completion of the medical decision making process will be conducted by additional ED providers. I have specifically instructed the patient or family members with the patient to immediately return to any nursing staff should anything change in the patient's condition or with their chief complaint. TRAVEL OUTSIDE OF THE [place] IN LAST 30 DAYS: No - Related Data Allergies/Adverse Reactions: hydromorphone [From Dilaudid] Adverse Reaction (Severe, Verified 05/13/20 14:19) Anxiety ibuprofen Adverse Reaction (Intermediate, Verified 05/13/20 14:19) Vomiting Past Medical History - Social History Chew tobacco use (# tins/day): No - Past Medical History Cardiac Medical History: Reports: Hx Hypertension Pulmonary Medical History: Reports: Hx Asthma Renal/ Medical History: Denies: Hx Peritoneal Dialysis Past Surgical History: Reports: Hx Section, Hx Cholecystectomy, Hx Hys terectomy - Immunizations Hx Diphtheria, Pertussis, Tetanus Vaccination: Yes Physical Exam - Vital signs Vitals: Temp Pulse Resp BP Pulse Ox 98.3 F 63 18 154/79 H 99 05/13/20 14:05 05/13/20 14:05 05/13/20 14:05 05/13/20 14:05 05/13/20 14:05 Course - Vital Signs Vital signs: Temp Pulse Resp BP Pulse Ox 98.3 F 63 18 154/79 H 99 05/13/20 14:05 05/13/20 14:05 05/13/20 14:05 05/13/20 14:05 05/13/20 14:05
[2020-05-13 15:25] LABS: INTERNATIONAL RATION (INR) 1.21; PROTHROMBIN TIME 15.5 SEC (11.4-15.4)
[2020-05-13 15:26] LABS: PARTIAL THROMBOPLASTIN TIME 33.9 SEC (23.5-35.8)
[2020-05-13] MEDS ORDERED: OXYCODONE-ACETAMINOPHEN 5-325 MG TABLET PO ONE (15:43)
--- NOTE | 2020-05-13 16:46 | RADIOLOGY REPORT (SQ) ---
EXAM DESCRIPTION: VENOUS UNILATERAL LOWER IMAGES COMPLETED DATE/TIME: 05/13/2020 4:34 pm REASON FOR STUDY: LLE pain/swelling COMPARISON: None. TECHNIQUE: Dynamic and static palma scale and color images acquired of the left leg venous system. Se lected spectral images acquired with additional compression and augmentation maneuvers. The contralat eral common femoral vein and saphenofemoral junction were also imaged. Images stored on PACS. LIMITATIONS: None. FINDINGS: LEFT COMMON FEMORAL: Normal phasicity, compression and augmentation. No visualized echogenic material on g ray scale. No defects on color images. FEMORAL: Normal compression and augmentation. No visualized echogenic material on palma scale. No defe cts on color images. POPLITEAL: Normal compression, augmentation. No visualized echogenic material on palma scale. No defec ts on color images. CALF VESSELS: Hypoechoic acute clot in the paired posterior tibial veins in the left calf. GSV and SSV: Normal compression, augmentation. No visualized echogenic material on palma scale. No def ects on color images. ANY DEEP VENOUS INSUFFICIENCY: Not evaluated. ANY EVIDENCE OF POPLITEAL CYST: No. OTHER: No other significant finding. RIGHT COMMON FEMORAL VEIN AND SAPHENOFEMORAL JUNCTION: Normal phasicity, compression and augmentation. No visualized echogenic material on palma scale. No de fects on color images. IMPRESSION: Hypoechoic acute clot in the paired posterior tibial veins in the left calf. TECHNICAL DOCUMENTATION: JOB ID: [id number] 2010 [employer]- All Rights Reserved Reading location - IP/workstation name: [email or web address]
[2020-05-13 19:36] LABS: ALBUMIN 4.1 g/dL (3.5-5.0); ALKALINE PHOSPHATASE 75 U/L (38-126); ANION GAP 7 (5-19); ASPARTATE AMINO TRANSFERASE 21 U/L (14-36); BILIRUBIN,DIRECT 0.4 mg/dL (0.0-0.4); BILIRUBIN,TOTAL 0.4 mg/dL (0.2-1.3); BLOOD UREA NITROGEN 9 mg/dL (7-20); CALCIUM 9.6 mg/dL (8.4-10.2); CARBON DIOXIDE 31 mmol/L (22-30); CHLORIDE 103 mmol/L (98-107); GLUCOSE 109 mg/dL (75-110); POTASSIUM 4.2 mmol/L (3.6-5.0); TOTAL PROTEIN 7.2 g/dL (6.3-8.2)
--- NOTE | 2020-05-13 20:20 | ER Document Report ---
ED General - General Mode of Arrival: Wheelchair TRAVEL OUTSIDE OF THE [place] IN LAST 30 DAYS: No <SHAHZAD DUMONT - Last Filed: 05/14/20 05:57> <BRADFORD HELLER - Last Filed: 05/14/20 09:02> - General Chief Complaint: Leg Pain Stated Complaint: LEG PAIN Time Seen by Provider: 05/13/20 14:19 Primary Care Provider: [facility] [Provider Group] - 05/16/20 Notes: Patient is a 44-year-old female who presents emergency department with a chief complaint of left lower extremity pain that started couple weeks ago. Patient was seen in triage and was diagnosed with a DVT. Patient then ended up having some shortness of breath. Patient states that her shortness of breath will come and go. Patient is an everyday smoker. Denies any blood thinner use. Patient has a history of hypertension, but is currently not on medications. She has an appointment with [facility] on May 23. (SHAHZAD DUMONT) - Related Data Allergies/Adverse Reactions: hydromorphone [From Dilaudid] Adverse Reaction (Severe, Verified 05/13/20 14:19) Anxiety ibuprofen Adverse Reaction (Intermediate, Verified 05/13/20 14:19) Vomiting Past Medical History - General Information source: Patient - Social History Smoking Status: Current Every Day Smoker Chew tobacco use (# tins/day): No Family History: Reviewed & Not Pertinent - Past Medical History Cardiac Medical History: Reports: Hx Hypertension Pulmonary Medical History: Reports: Hx Asthma Renal/ Medical History: Denies: Hx Peritoneal Dialysis Past Surgical History: Reports: Hx Section, Hx Cholecystectomy, Hx Hyst erectomy - Immunizations Hx Diphtheria, Pertussis, Tetanus Vaccination: Yes <SHAHZAD DUMONT - Last Filed: 05/14/20 05:57> Review of Systems <ROGER DUMONTVIVI Butler - Last Filed: 05/14/20 05:57> - Review of Systems Notes: REVIEW OF SYSTEMS: CONSTITUTIONAL : Denies recent illness. Denies recent unintentional weight loss. Denies fever, chills, or sweats. EENT: Denies eye, ear, throat, or mouth pain, discharge, or symptoms. Denies nasal or sinus congestion. CARDIOVASCULAR: Denies chest pain. RESPIRATORY: See HPI. GASTROINTESTINAL: Denies nausea, vomiting, and diarrhea. Denies abdominal pain. Denies constipation. GENITOURINARY: Denies difficulty urinating, burning, blood in urine, urgency or frequency. MUSCULOSKELETAL: Denies neck and back pain. See HPI. SKIN: Denies rash, itchiness, or lesions HEMATOLOGIC : Denies easy bruising or bleeding. LYMPHATIC: Denies swollen, painful, enlarged glands. NEUROLOGICAL: Denies no numbness or tingling denies weakness. Denies headache. Denies altered mental status. Denies alteration in speech. PSYCHIATRIC: Denies stress, anxiety, alteration in sleep patterns, or depression. All other systems reviewed and negative. (SHAHZAD DUMONT) Physical Exam <SHAHZAD DUMONT - Last Filed: 05/14/20 05:57> - Vital signs Vitals: Temp Pulse Resp BP Pulse Ox 98.3 F 63 18 154/79 H 99 05/13/20 14:05 05/13/20 14:05 05/13/20 14:05 05/13/20 14:05 05/13/20 14:05 - Notes Notes: PHYSICAL EXAMINATION: GENERAL: Appears well, healthy, well-nourished, no acute distress. HEAD: Normocephalic, atraumatic. EYES: PERRL, conjunctiva normal, all extraocular movements intact, sclera nonicteric ENT: Moist mucous membranes. NECK: Supple, no noticeable swelling, redness, rash. Normal range of motion. LUNGS: Equal breath sounds bilaterally and clear to auscultation. No wheezes rales or rhonchi. CARDIOVASCULAR: S1-S2, regular rate, regular rhythm. Radial pulses 2+, normal. ABDOMEN: Normoactive bowel sounds. Soft, nontender, no guarding, no rebound tenderness, and no masses palpated. EXTREMITIES: Normal strength and range of motion, no pitting or edema. No cyanosis. NEUROLOGICAL: Moves all extremities upon command. Strength 5/5 in all extremities. PSYCH: Normal mood, normal affect. SKIN: Warm, dry. No rash, lesions, ulcerations noted. Normal skin turgor. (SHAHZAD DUMONT) Course - Laboratory Result Diagrams: 05/13/20 15:07 05/13/20 15:07 <SHAHZAD DUMONT - Last Filed: 05/14/20 05:57> - Laboratory Result Diagrams: 05/13/20 15:07 05/13/20 15:07 <BRADFORD HELLER - Last Filed: 05/14/20 09:02> - Re-evaluation Re-evalutation: 05/13/20 22:24 CTA of the chest is unremarkable. Discussed with Dr. sosa the DVT and due to the patient not having insurance would be the best medication to start her on. He recommends Coumadin. Spoke with the patient and she is in agreement with this plan. Advised that she have very close follow-up with [facility] to have her labs redrawn. Discussed risks of taking this medication. Patient will receive a dose of Lovenox here in the emergency department. She is in agreement with this plan. Follow-up precautions were given. Verbal discharge instructions were given to the patient. They verbalized understanding. They are stable for discharge. (SHAHZAD DUMONT) - Vital Signs Vital signs: Temp Pulse Resp BP Pulse Ox 98.6 F 57 L 16 137/99 H 99 05/13/20 18:42 05/13/20 18:42 05/13/20 23:30 05/13/20 23:30 05/13/20 23:30 - Laboratory Laboratory results interpreted by me: 05/13/20 05/13/20 05/13/20 15:07 15:07 15:07 RDW 14.3 H PT 15.5 H Carbon Dioxide 31 H Discharge <SHAHZAD DUMONT - Last Filed: 05/14/20 05:57> <BRADFORD HELLER - Last Filed: 05/14/20 09:02> - Discharge Clinical Impression: Shortness of breath DVT (deep venous thrombosis) Qualifiers: DVT location: lower extremity Affected thrombotic vein of extremity: unspecified vein of extremity Chronicity: acute Laterality: left Qualified Code(s): I82.402 - Acute embolism and thrombosis of unspecified deep veins of left lower extremity Leg pain Qualifiers: Laterality: left Qualified Code(s): M79.605 - Pain in left leg Hypertension Qualifiers: Hypertension type: unspecified Qualified Code(s): I10 - Essential (primary) hypertension Condition: Stable Disposition: HOME, SELF-CARE Additional Instructions: You were seen today in the emergency department for leg pain and shortness of breath. You have a blood clot in your leg, but not in your lungs. You have been started on a blood thinner called Coumadin/warfarin. Take it daily. Follow-up with [facility] on Saturday. Let them know that you were started on this medication for a blood clot. Have them draw your blood next week.. Please return to emergency department if you notice worsening pain to the affected area, you began having rectal bleeding, hit your head, develop shortness of breath or chest pain, or have any other symptoms that are concerning to you. Take the [place] as needed for pain. Stop smoking as we discussed. Start hydrochlorothiazide tomorrow. Prescriptions: Warfarin Sodium [Coumadin] 5 mg PO DAILY #7 tablet Hydrochlorothiazide [Hydrodiuril 25 mg Tablet] 25 mg PO QAM #30 tablet Hydrocodone/Acetaminophen [[place] 5-325 mg Tablet] 1 tab PO ASDIR PRN #10 tablet PRN Reason: Hydrocodone/Acetaminophen [[place] 5-325 mg Tablet] 1 tab PO Q6H 4 Days #12 tablet Forms: Return to Work Referrals: [facility] [Provider Group] - 05/16/20
[2020-05-13] MEDS ORDERED: MORPHINE SULFATE 10 MG/ML INJ IV ONE (20:27)
[2020-05-13 20:31] LABS: ABSOLUTE BASOPHILS # (AUTO) 0.1 10^3/uL (0.0-0.2); ABSOLUTE EOSINOPHILS # (AUTO) 0.2 10^3/uL (0.0-0.6); ABSOLUTE LYMPHOCYTES (AUTO) 2.5 10^3/uL (0.5-4.7); ABSOLUTE MONOCYTES (AUTO) 0.4 10^3/uL (0.1-1.4); ABSOLUTE NEUT (AUTO) 5.4 10^3/uL (1.7-8.2); BASOPHILS % (AUTO) 0.9 % (0-2); EOSINOPHILS % (AUTO) 2.4 % (0-6); HEMATOCRIT 39.5 % (36.0-47.0); LYMPHOCYTES % (AUTO) 28.8 % (13-45); MEAN CORPUSCULAR HEMOGLOBIN 29.7 pg (27.0-33.4); MEAN CORPUSCULAR HGB CONC 32.8 g/dL (32.0-36.0); MEAN CORPUSCULAR VOLUME 91 fl (80-97); MONOCYTES % (AUTO) 4.9 % (3-13); PLATELET COUNT 296 10^3/uL (150-450); RED BLOOD COUNT 4.37 10^6/uL (3.72-5.28); RED CELL DISTRIBUTION WIDTH 14.3 % (11.5-14.0); TOTAL CELLS COUNTED % (AUTO) 100 %; WHITE BLOOD COUNT 8.6 10^3/uL (4.0-10.5)
--- NOTE | 2020-05-13 21:25 | RADIOLOGY REPORT (SQ) ---
CLINICAL INDICATION: shortness of breath. DVT. TECHNIQUE: CT arteriography was obtained of the chest with multiplanar MIP and/or 3-D angiographic reconstructions. This exam was performed according to our departmental dose-optimization program, which includes automated exposure control, adjustment of the mA and/or kV according to patient size and/or use of iterative reconstruction techniques. COMPARISON: None. CORRELATION: None. FINDINGS: Heterogeneous contrast bolus. Average Hounsfield unit measurement within main pulmonary artery segment of 256. Artifact from venous opacification. There is no evidence of pulmonary embolus. Peripheral branch vessels are not well seen Thoracic aorta is of normal caliber. The heart is enlarged. No pericardial effusion. No bulky mediastinal adenopathy. The lungs demonstrate diffuse patchy areas of interstitial prominence. No dense consolidation. No effusion. No pneumothorax. Visualized abdominal contents are unremarkable. Visualized bones are unremarkable. IMPRESSION: No central pulmonary embolus. Patchy areas of interstitial prominence bilaterally. No consolidation or effusion or pneumothorax .
[2020-05-13] MEDS ORDERED: HYDROCODONE/ACETAMINOPHEN 5-325 MG (6 TAB/ER DISP) PO PRN (22:20)
[2020-05-13] MEDS ORDERED: ENOXAPARIN SODIUM INJ 150 MG/1 ML DISP.SYRIN SUBCUT SCH (22:30)
[2020-05-13 23:41] VITALS: BP 137/99
== END 2020-05-13 23:41 | disposition home or self-care (01) ==
LOC: ER 13:27
DX: I82.402 Acute embolism and thrombosis of unspecified deep veins of left lower extremity (principal); M79.605 Pain in left leg; R06.02 Shortness of breath; I10 Essential (primary) hypertension; F17.200 Nicotine dependence, unspecified, uncomplicated; Z88.6 Allergy status to analgesic agent
CPT/HCPCS: 99285; 96372; 96374; 36415; 85025; 85610; 85730; 80053; 93971; 71275; J1650; J2270

== ENCOUNTER → 2020-05-21 | Outpatient (CLI) | payer OTHER ==
[2020-05-21 11:06] LABS: ABSOLUTE BASOPHILS # (AUTO) 0.1 10^3/uL (0.0-0.2); ABSOLUTE EOSINOPHILS # (AUTO) 0.2 10^3/uL (0.0-0.6); ABSOLUTE LYMPHOCYTES (AUTO) 2.4 10^3/uL (0.5-4.7); ABSOLUTE MONOCYTES (AUTO) 0.5 10^3/uL (0.1-1.4); ABSOLUTE NEUT (AUTO) 3.9 10^3/uL (1.7-8.2); BASOPHILS % (AUTO) 1.3 % (0-2); EOSINOPHILS % (AUTO) 2.2 % (0-6); HEMATOCRIT 41.4 % (36.0-47.0); HEMOGLOBIN 14.3 g/dL (12.0-15.5); LYMPHOCYTES % (AUTO) 34.8 % (13-45); MEAN CORPUSCULAR HEMOGLOBIN 30.2 pg (27.0-33.4); MEAN CORPUSCULAR HGB CONC 34.5 g/dL (32.0-36.0); MONOCYTES % (AUTO) 6.5 % (3-13); PLATELET COUNT 289 10^3/uL (150-450); RED BLOOD COUNT 4.74 10^6/uL (3.72-5.28); RED CELL DISTRIBUTION WIDTH 13.9 % (11.5-14.0); SEGMENTED NEUTROPHILS % (AUTO) 55.2 % (42-78); TOTAL CELLS COUNTED % (AUTO) 100 %
[2020-05-21 11:15] LABS: INTERNATIONAL RATION (INR) 1.53; PROTHROMBIN TIME 18.5 SEC (11.4-15.4)
[2020-05-21 11:24] LABS: MEAN CORPUSCULAR VOLUME 87 fl (80-97)
== END ==
LOC: CCC 10:26
PROVIDERS: ATTEND Internal Medicine
DX: Z00.00 Encounter for general adult medical examination without abnormal findings (principal); Z79.01 Long term (current) use of anticoagulants; Z79.891 Long term (current) use of opiate analgesic
CPT/HCPCS: 36415; 83036; 84443; 85025; 85610

== ENCOUNTER 2020-06-09 19:16 | Emergency (ER) | payer SELFPAY ==
--- NOTE | 2020-06-09 20:04 | ER Document Report ---
ED Medical Screen (RME) - General Stated Complaint: LEFT LEG PAIN Time Seen by Provider: 06/09/20 19:58 Primary Care Provider: [facility] [Primary Care Provider] - Follow up as needed TRAVEL OUTSIDE OF THE [place] IN LAST 30 DAYS: No - HPI Notes: 06/09/20 20:03 44-year-old female to the emergency department with complaints of left leg pain that is been persisting. She states several weeks ago she was diagnosed with a DVT in this leg. She states she is started on Xarelto. She states she is taking 50 mg twice a day. She states that she went to see her doctor in [facility] and let her know that her leg is still very painful and uncomfortable. Dr. Pena was concerned for her symptoms. She wanted her to be followed up here. She also reports exertional shortness of breath that is been going on at the same time as the DVT in her leg. She denies any chest pain. She does admit to a little bit of back pain. She denies any fevers or chills. She denies any cough. I performed a brief medical screening exam on the patient determined that the patient needs further evaluation and management by main side provider. I have placed initial orders to help expedite care. - Related Data Allergies/Adverse Reactions: hydromorphone [From Dilaudid] Adverse Reaction (Severe, Verified 05/13/20 14:19) Anxiety ibuprofen Adverse Reaction (Intermediate, Verified 05/13/20 14:19) Vomiting Past Medical History - Past Medical History Cardiac Medical History: Reports: Hx Hypertension Pulmonary Medical History: Reports: Hx Asthma Renal/ Medical History: Denies: Hx Peritoneal Dialysis Past Surgical History: Reports: Hx Section, Hx Cholecystectomy, Hx Hysterectomy - Immunizations Hx Diphtheria, Pertussis, Tetanus Vaccination: Yes Physical Exam - Vital signs Vitals: Temp Pulse Resp BP Pulse Ox 98.4 F 77 16 130/83 H 94 06/09/20 19:35 06/09/20 19:35 06/09/20 19:35 06/09/20 19:35 06/09/20 19:35 Course - Vital Signs Vital signs: Temp Pulse Resp BP Pulse Ox 98.4 F 77 16 130/83 H 94 06/09/20 19:35 06/09/20 19:35 06/09/20 19:35 06/09/20 19:35 06/09/20 19:35 Doctor's Discharge - Discharge Referrals: [facility] [Primary Care Provider] - Follow up as needed
--- NOTE | 2020-06-09 20:33 | RADIOLOGY REPORT (SQ) ---
CLINICAL INDICATION: exertional chest pain. TECHNIQUE: PA and lateral views were obtained of the chest COMPARISON: None. FINDINGS: The cardiomediastinal silhouette is prominent. The lungs are grossly clear. No evidence of effusion or pneumothorax. Visualized bones are unremarkable. Mild presumed chronic parenchymal lung changes.. IMPRESSION: Prominent cardiac silhouette .
[2020-06-09 21:09] LABS: ABSOLUTE BASOPHILS # (AUTO) 0.1 10^3/uL (0.0-0.2); ABSOLUTE EOSINOPHILS # (AUTO) 0.2 10^3/uL (0.0-0.6); ABSOLUTE LYMPHOCYTES (AUTO) 2.9 10^3/uL (0.5-4.7); ABSOLUTE MONOCYTES (AUTO) 0.5 10^3/uL (0.1-1.4); ABSOLUTE NEUT (AUTO) 5.9 10^3/uL (1.7-8.2); EOSINOPHILS % (AUTO) 2.1 % (0-6); HEMATOCRIT 39.8 % (36.0-47.0); HEMOGLOBIN 13.7 g/dL (12.0-15.5); LYMPHOCYTES % (AUTO) 30.4 % (13-45); MEAN CORPUSCULAR HEMOGLOBIN 30.2 pg (27.0-33.4); MEAN CORPUSCULAR HGB CONC 34.5 g/dL (32.0-36.0); MEAN CORPUSCULAR VOLUME 88 fl (80-97); MONOCYTES % (AUTO) 4.8 % (3-13); PLATELET COUNT 273 10^3/uL (150-450); RED BLOOD COUNT 4.54 10^6/uL (3.72-5.28); RED CELL DISTRIBUTION WIDTH 13.7 % (11.5-14.0); SEGMENTED NEUTROPHILS % (AUTO) 61.7 % (42-78); TOTAL CELLS COUNTED % (AUTO) 100 %; WHITE BLOOD COUNT 9.5 10^3/uL (4.0-10.5)
[2020-06-09 21:25] LABS: ALBUMIN 4.3 g/dL (3.5-5.0); ALKALINE PHOSPHATASE 94 U/L (38-126); ANION GAP 10 (5-19); ASPARTATE AMINO TRANSFERASE 35 U/L (14-36); BILIRUBIN,DIRECT 0.4 mg/dL (0.0-0.4); BILIRUBIN,TOTAL 0.4 mg/dL (0.2-1.3); BLOOD UREA NITROGEN 12 mg/dL (7-20); CALCIUM 9.8 mg/dL (8.4-10.2); CARBON DIOXIDE 33 mmol/L (22-30); CHLORIDE 96 mmol/L (98-107); GLUCOSE 114 mg/dL (75-110); POTASSIUM 3.6 mmol/L (3.6-5.0); TOTAL PROTEIN 7.6 g/dL (6.3-8.2)
[2020-06-09 21:37] LABS: NT PRO BNP 32 pg/mL (<125); TROPONIN I < 0.012 ng/mL
--- NOTE | 2020-06-09 22:18 | RADIOLOGY REPORT (SQ) ---
US LOWER EXTREMITY VEINS HISTORY: Leg pain and swelling. COMPARISON: None. TECHNIQUE: Grayscale, color Doppler, and spectral Doppler images of the left lower extremity were performed. FINDINGS: The common femoral, superficial femoral and popliteal veins are patent and compressible. Normal augmentation and color Doppler blood flow in the aforementioned veins. The visualized calf veins are also patent. Diffuse subcutaneous edema is present. IMPRESSION: No DVT in the left lower extremity.
--- NOTE | 2020-06-09 22:51 | ER Document Report ---
ED Extremity Problem, Lower - General Chief Complaint: Leg Pain Stated Complaint: LEFT LEG PAIN Time Seen by Provider: 06/09/20 19:58 Primary Care Provider: [facility] [Primary Care Provider] - Follow up as needed Notes: CHIEF COMPLAINT: Continuing left leg pain HPI: 44-year-old female who states she was diagnosed with a DVT in the left leg a month ago and is on Xarelto for same presenting with continued pain in the left leg. States she has been placed on tramadol by her PCP but called the PCP today because of the continuing leg pain and was referred into the emergency department states she is almost out of her tramadol. Patient denies chest pain shortness of breath. States that she has increased pain in the leg with exertional activities. No new swelling of the leg. ROS: See HPI - all other systems were reviewed and are otherwise negative Constitutional: no fever Eyes: no drainage, no blurred vision ENT: no runny nose, no sore throat Cardiovascular: no chest pain Resp: no SOB, no cough GI: no vomiting, no diarrhea, no abdominal pain : no dysuria Integumentary: no rash Allergy: no hives Musculoskeletal: + extremity pain or swelling Neurological: no numbness/tingling, no weakness MEDICATIONS: I agree with the patient medications as charted by the RN. ALLERGIES: I agree with the allergies as charted by the RN. PAST MEDICAL HISTORY/PAST SURGICAL HISTORY: Reviewed and agree as charted by RN. SOCIAL HISTORY: Reviewed and agree as charted by RN. FAMILY HISTORY: No significant familial comorbid conditions directly related to patient complaint EXAM: Reviewed vital signs as charted by RN. CONSTITUTIONAL: Alert and oriented and responds appropriately to questions. We ll-appearing; well-nourished HEAD: Normocephalic; atraumatic EYES: PERRL; Conjunctivae clear, sclerae non-icteric ENT: normal nose; no rhinorrhea; moist mucous membranes; pharynx without lesions noted, no uvula edema or deviation, no tonsillar hypertrophy, phonation normal NECK: Supple without meningismus; non-tender; no cervical lymphadenopathy, no masses CARD: RRR; no murmurs, no clicks, no rubs, no gallops; symmetric distal pulses RESP: Normal chest excursion without splinting or tachypnea; breath sounds clear and equal bilaterally; no wheezes, no rhonchi, no rales, pulse oximetry 98% on room air not hypoxic ABD/GI: Normal bowel sounds; non-distended; soft, non-tender, no rebound, no guarding; no palpable organomegaly or masses. BACK: The back appears normal and is non-tender to palpation, there is no CVA tenderness EXT: Normal ROM in all joints; mild tenderness over the anterior left thigh and proximal left calf region without visible swelling; no cyanosis, no effusions, no edema. Sensation is intact in the bilateral lower extremities and equal. Strength is equal bilateral lower extremities 5/5. SKIN: Normal color for age and race; warm; dry; good turgor; no acute lesions no cipriano NEURO: Moves all extremities equally; Motor and sensory function intact PSYCH: The patient's mood and manner are appropriate. Grooming and personal hygiene are appropriate. MDM: 44-year-old female with left leg pain has been ongoing for several months had a DVT diagnosed a month ago is on Xarelto. Doppler study today does not show evidence of a blood clot in the leg. Her lab work is normal. Patient likely has deconditioning of the leg secondary to the blood clot and limited mobility for a month. She will follow back up with her PCP tomorrow, did recommend physical therapy to the patient. She will discuss this with her PCP. She will receive a 1 to 2-day course of tramadol she may refill this with her PCP tomorrow if needed TRAVEL OUTSIDE OF THE [place] IN LAST 30 DAYS: No - Related Data Allergies/Adverse Reactions: hydromorphone [From Dilaudid] Adverse Reaction (Severe, Verified 05/13/20 14:19) Anxiety ibuprofen Adverse Reaction (Intermediate, Verified 05/13/20 14:19) Vomiting Home Medications: xaralto, HCTZ Past Medical History - Social History Smoking Status: Current Every Day Smoker Family History: Reviewed & Not Pertinent - Past Medical History Cardiac Medical History: Reports: Hx Hypertension Pulmonary Medical History: Reports: Hx Asthma Renal/ Medical History: Denies: Hx Peritoneal Dialysis Past Surgical History: Reports: Hx Section, Hx Cholecystectomy, Hx Hysterectomy - Immunizations Hx Diphtheria, Pertussis, Tetanus Vaccination: Yes Physical Exam - Vital signs Vitals: Temp Pulse Resp BP Pulse Ox 98.4 F 77 16 130/83 H 94 06/09/20 19:35 06/09/20 19:35 06/09/20 19:35 06/09/20 19:35 06/09/20 19:35 Course - Vital Signs Vital signs: Temp Pulse Resp BP Pulse Ox 98.4 F 77 16 130/83 H 94 06/09/20 19:35 06/09/20 19:35 06/09/20 19:35 06/09/20 19:35 06/09/20 19:35 - Laboratory Result Diagrams: 06/09/20 20:50 06/09/20 20:50 Laboratory results interpreted by me: 06/09/20 20:50 Chloride 96 L Carbon Dioxide 33 H Glucose 114 H ALT 38 H Discharge - Discharge Clinical Impression: Leg pain, left Condition: Stable Disposition: HOME, SELF-CARE Additional Instructions: Follow-up with your primary care provider tomorrow regarding the continuing left leg pain. The Doppler study today showed that the blood clot in the left leg has cleared. Your lab work today did not have acute abnormalities. You are being given a short course of tramadol tonight, refill pain medications through your primary care provider as needed in future. You may benefit from physical therapy for any deconditioning issues with the left leg as discussed Prescriptions: Tramadol HCl [Ultram 50 mg Tablet] 50 mg PO Q6HP PRN #12 tab PRN Reason: Referrals: [facility] [Primary Care Provider] - Follow up as needed
[2020-06-09 23:01] VITALS: BP 122/77
--- NOTE | 2020-06-10 16:06 | EKG REPORT ---
SEVERITY:- ABNORMAL ECG - SINUS RHYTHM PROBABLE LEFT ATRIAL ABNORMALITY NONSPECIFIC T ABNORMALITIES, DIFFUSE LEADS : Confirmed by: Gen Valdez MD 10-Jun-2020 16:05:22
== END 2020-06-09 23:01 | disposition home or self-care (01) ==
LOC: ER 19:16
DX: M79.605 Pain in left leg (principal); F17.200 Nicotine dependence, unspecified, uncomplicated; I10 Essential (primary) hypertension; Z90.49 Acquired absence of other specified parts of digestive tract; Z90.710 Acquired absence of both cervix and uterus; Z79.01 Long term (current) use of anticoagulants
CPT/HCPCS: 36415; 71046; 80053; 83880; 84484; 85025; 93005; 93010; 93971; 99285

== ENCOUNTER → 2020-06-18 | Outpatient (CLI) | payer OTHER ==
--- NOTE | 2020-06-18 10:22 | RADIOLOGY REPORT (SQ) ---
EXAM DESCRIPTION: HAND BILATERAL 3 VIEWS IMAGES COMPLETED DATE/TIME: 06/18/2020 10:07 am REASON FOR STUDY: LOWER BACK PAIN, PAIN IN LT HAND I10 ESSENTIAL (PRIMARY) HYPERTENSION M79.10 GHASSAN LGIA, UNSPECIFIED SITE Z83.71 FAMILY HISTORY OF COLONIC POLYPS COMPARISON: None. EXAM PARAMETERS: NUMBER OF VIEWS: Three views right hand. Three views left hand. TECHNIQUE: AP, lateral and oblique radiographic images acquired of bilateral hands. LIMITATIONS: None. FINDINGS: RIGHT HAND: MINERALIZATION: Normal. BONES: No acute fracture or dislocation. No worrisome bone lesions. No significant osteophytes. JOINTS: No erosions. No karina-articular osteopenia. No chondrocalcinosis. SOFT TISSUES: No swelling. No calcifications. OTHER: No other significant finding. LEFT HAND: MINERALIZATION: Normal. BONES: No acute fracture or dislocation. No worrisome bone lesions. No significant osteophytes. JOINTS: No erosions. No karina-articular osteopenia. No chondrocalcinosis. SOFT TISSUES: No swelling. No calcifications. OTHER: No other significant finding. IMPRESSION: Normal. TECHNICAL DOCUMENTATION: JOB ID: [id number] 2010 [employer]- All Rights Reserved Reading location - IP/workstation name: [email or web address]
[2020-06-18 10:26] LABS: ABSOLUTE EOSINOPHILS # (AUTO) 0.2 10^3/uL (0.0-0.6); ABSOLUTE LYMPHOCYTES (AUTO) 2.3 10^3/uL (0.5-4.7); ABSOLUTE MONOCYTES (AUTO) 0.4 10^3/uL (0.1-1.4); ABSOLUTE NEUT (AUTO) 4.4 10^3/uL (1.7-8.2); BASOPHILS % (AUTO) 0.5 % (0-2); EOSINOPHILS % (AUTO) 3.1 % (0-6); HEMATOCRIT 39.7 % (36.0-47.0); HEMOGLOBIN 13.4 g/dL (12.0-15.5); LYMPHOCYTES % (AUTO) 31.1 % (13-45); MEAN CORPUSCULAR HEMOGLOBIN 29.5 pg (27.0-33.4); MEAN CORPUSCULAR HGB CONC 33.7 g/dL (32.0-36.0); MEAN CORPUSCULAR VOLUME 88 fl (80-97); MONOCYTES % (AUTO) 5.8 % (3-13); PLATELET COUNT 312 10^3/uL (150-450); RED BLOOD COUNT 4.53 10^6/uL (3.72-5.28); RED CELL DISTRIBUTION WIDTH 14.1 % (11.5-14.0); SEGMENTED NEUTROPHILS % (AUTO) 59.5 % (42-78); TOTAL CELLS COUNTED % (AUTO) 100 %; WHITE BLOOD COUNT 7.3 10^3/uL (4.0-10.5)
[2020-06-18 10:38] LABS: ANION GAP 7 (5-19); BLOOD UREA NITROGEN 12 mg/dL (7-20); C-REACTIVE PROTEIN 8.7 mg/L (<10.0); CALCIUM 9.9 mg/dL (8.4-10.2); CARBON DIOXIDE 35 mmol/L (22-30); CHLORIDE 96 mmol/L (98-107); CHOLESTEROL 202.15 mg/dL (0-200); GLUCOSE 92 mg/dL (75-110); POTASSIUM 3.6 mmol/L (3.6-5.0); TRIGLYCERIDES 134 mg/dL (<150)
[2020-06-18 10:47] LABS: DIRECT LDL 131 mg/dL (<100)
[2020-06-18 11:04] LABS: ERYTHROCYTE SEDIMENTATION RATE 62 mm/hr (0-20)
--- NOTE | 2020-06-18 11:07 | RADIOLOGY REPORT (SQ) ---
EXAM DESCRIPTION: LUMBAR SPINE W/FLEX/EXT IMAGES COMPLETED DATE/TIME: 06/18/2020 10:07 am REASON FOR STUDY: LOWER BACK PAIN I10 ESSENTIAL (PRIMARY) HYPERTENSION M79.10 MYALGIA, UNSPECIFIED SITE Z83.71 FAMILY HISTORY OF COLONIC POLYPS COMPARISON: None. NUMBER OF VIEWS: Seven views. TECHNIQUE: AP, lateral, obliques, flexion, extension, and sacral radiographic images acquired. LIMITATIONS: None. FINDINGS: MINERALIZATION: Normal. SEGMENTATION: Normal. No transitional anatomy. ALIGNMENT: Normal. FLEXION/EXTENSION: No instability. VERTEBRAE: Maintained height. No fracture or worrisome bone lesion. DISCS: Preserved height. Small anterior spurs superior endplate L4. POSTERIOR ELEMENTS: Pedicles and facets are intact. No pars defect or posterior arch defects. HARDWARE: None in the spine. PARASPINAL SOFT TISSUES: Normal. PELVIS: Intact as visualized. No fractures or worrisome bone lesions. SI joints intact. OTHER: No other significant finding. IMPRESSION: NO SIGNIFICANT FINDING ON 7 VIEW SPINE SERIES. NO INSTABILITY ON FLEXION/EXTENSION. TECHNICAL DOCUMENTATION: JOB ID: [id number] [employer]- All Rights Reserved Reading location - IP/workstation name: [email or web address]
--- NOTE | 2020-06-18 17:40 | EKG REPORT ---
SEVERITY:- ABNORMAL ECG - SINUS RHYTHM NONSPECIFIC T ABNORMALITIES, ANT-LAT LEADS : Confirmed by: Regis Gutierrez MD 18-Jun-2020 17:39:47
== END ==
LOC: CCC 08:57
PROVIDERS: ATTEND Internal Medicine
DX: I10 Essential (primary) hypertension (principal); M79.10 Myalgia, unspecified site; Z83.71 Family history of colonic polyps; Z79.899 Other long term (current) drug therapy; I51.7 Cardiomegaly; M54.5 Low back pain; M79.642 Pain in left hand
CPT/HCPCS: 36415; 72114; 80048; 80061; 83036; 83520; 85025; 85652; 86038; 86140; 86200; 86225; 86235; 86431; 93005; 93010; 93041; 93042

== ENCOUNTER → 2020-07-06 | Outpatient (CLI) | payer OTHER ==
--- NOTE | 2020-07-06 14:58 | RADIOLOGY REPORT (SQ) ---
EXAM DESCRIPTION: U/S EXTREMITY NONVASCULAR COMP IMAGES COMPLETED DATE/TIME: 07/06/2020 1:26 pm REASON FOR STUDY: M25.562 PAIN IN LEFT KNEE/EFFUSION, KNEE M25.562 PAIN IN LEFT KNEE M25.469 EFFUS ION, UNSPECIFIED KNEE COMPARISON: 06/09/2020 TECHNIQUE: Dynamic and static grayscale images acquired of the localized site of clinical concern an d recorded on PACS. Additional selected color Doppler and spectral images recorded. SITE OF CONCERN: Left upper thigh and left knee LIMITATIONS: None. FINDINGS: SKIN AND SUBCUTANEOUS TISSUES: Targeted sonographic evaluation of the patient- identified area of concern localizing to the upper thigh demonstrates normal underlying musculotendinous structu res. No focal fluid collection or mass. Targeted sonographic evaluation of the left knee demonstrat es a joint effusion. DEEP SOFT TISSUES/MUSCLES: No masses. No fluid collections. No edema. VASCULAR: No increased or decreased vascularity. No occlusions. OTHER: No other significant finding. IMPRESSION: Left knee joint effusion. No abnormal findings involving the left upper thigh. TECHNICAL DOCUMENTATION: JOB ID: [id number] 2010 [employer]- All Rights Reserved Reading location - IP/workstation name: [email or web address]
== END ==
LOC: RAD 12:43
PROVIDERS: ATTEND Internal Medicine
DX: M25.562 Pain in left knee (principal); M25.462 Effusion, left knee
CPT/HCPCS: 76881

== ENCOUNTER → 2020-07-08 | Outpatient (CLI) | payer OTHER ==
[2020-07-08 16:02] LABS: FOLATE 4.19 ng/mL (>2.76)
== END ==
LOC: OD 14:01
PROVIDERS: ATTEND Internal Medicine
DX: R20.2 Paresthesia of skin (principal)
CPT/HCPCS: 36415; 82607; 82746; 83735; 84443

== ENCOUNTER → 2020-07-08 | Outpatient (CLI) | payer OTHER ==
--- NOTE | 2020-07-08 14:49 | RADIOLOGY REPORT (SQ) ---
EXAM DESCRIPTION: MRI LT LOWER JOINT WITHOUT IMAGES COMPLETED DATE/TIME: 07/08/2020 1:03 pm REASON FOR STUDY: (L) POST KNEE PAIN, SWELLING X 2 YEARS - M25.562 PAIN IN LEFT KNEE COMPARISON: None. TECHNIQUE: Leftknee images acquired and stored on PACS. Multiplanar images include fat sensitive se quences as T1, water sensitive sequences as FST2 or STIR, cartilage sensitive sequences as FSPD, and gradient echo sequences. LIMITATIONS: Motion artifact on some sequences. This is up to moderate. FINDINGS: JOINT AND BURSAE: Sizable joint effusion. No loose bodies detected. BONE CORTEX AND MARROW: Lesion in the fibula extends just over 2.5 cm craniocaudal. Hyperintense T2 with internal septations and punctate low signal. Unclear if this represents a chondroid lesion or c ystic mass. Initial further correlation with radiographs recommended. ACL: Intact. No degeneration or ganglion cyst. PCL: Intact. MCL: Intact. No periligamentous edema or fluid. LCL: Intact. No periligamentous edema or fluid. MEDIAL MENISCUS: Complex tear posterior horn and root. LATERAL MENISCUS: No tears. No abnormal signal. MEDIAL COMPARTMENT: No focal chondral lesion. LATERAL COMPARTMENT: No focal chondral lesion. PATELLA: Preserved cartilage. Normal location. EXTENSOR MECHANISM: Intact. Quadriceps and patella tendons normal. SOFT TISSUES: Adjacent muscles and subcutaneous tissues normal. Normal flow void in popliteal artery and vein. OTHER: No other significant finding. IMPRESSION: 1. Medial meniscus tear. 2. Lesion in the proximal fibula. Radiographic correlation should be performed along with clinical a ssessment for pain over the proximal fibula. 3. Joint effusion. TECHNICAL DOCUMENTATION: JOB ID: [id number] [employer]- All Rights Reserved Reading location - IP/workstation name: [email or web address]
--- NOTE | 2020-07-08 15:00 | RADIOLOGY REPORT (SQ) ---
EXAM DESCRIPTION: CERV SP 6 OR MORE IMAGES COMPLETED DATE/TIME: 07/08/2020 2:48 pm REASON FOR STUDY: MUSCLE WASTING AND ATROPHY, NOT ELSEWHERE CLASSIFIED M25.562 PAIN IN LEFT KNEE M6 2.521 MUSCLE WASTING AND ATROPHY, NEC, RIGHT UPPER ARM COMPARISON: None. NUMBER OF VIEWS: Seven views. TECHNIQUE: AP, lateral, obliques, flexion, extension, and odontoid radiographic images acquired of t cervical spine. LIMITATIONS: None. FINDINGS: MINERALIZATION: Normal. ALIGNMENT: Anatomic. FLEXION/EXTENSION: Slight anterior translation of C4 on C5 in flexion only. VERTEBRAE: Vertebral bodies of normal height. DISCS: No significant osteophytes or sclerosis. Disc height maintained. FORAMINA: No osteophytes or foraminal narrowing. LATERAL AND POSTERIOR ELEMENTS: Facets, lateral masses, and spinous processes without significant fin dings. HARDWARE: None in the spine. SOFT TISSUES: No masses or calcifications. Lung apices clear. OTHER: No other significant finding. IMPRESSION: NO SIGNIFICANT FINDING ON 7 VIEW SPINE SERIES. SLIGHT ANTERIOR TRANSLATION OF C4 ON C5 IN FLEXION. TECHNICAL DOCUMENTATION: JOB ID: [id number] 2010 [employer]- All Rights Reserved Reading location - IP/workstation name: [email or web address]
== END ==
LOC: RAD 12:07
PROVIDERS: ATTEND Internal Medicine
DX: M62.521 Muscle wasting and atrophy, not elsewhere classified, right upper arm (principal); S83.242A Other tear of medial meniscus, current injury, left knee, initial encounter; X58.XXXA Exposure to other specified factors, initial encounter; M25.462 Effusion, left knee; M25.562 Pain in left knee
CPT/HCPCS: 72052

== ENCOUNTER → 2020-07-11 | Outpatient (CLI) | payer OTHER ==
--- NOTE | 2020-07-11 09:03 | WOMENS IMAGING REPORT ---
EXAM DESCRIPTION: PINK JOHANNA BILATERAL SCREEN IMAGES COMPLETED DATE/TIME: 07/11/2020 7:27 am REASON FOR STUDY: Z80.3 FAMILY HISTORY OF MALIGNANT NEOPLASM OF BREAST Z80.3 FAMILY HISTORY OF KELY GNANT NEOPLASM OF BREAST COMPARISON: None. EXAM PARAMETERS: Standard craniocaudal and mediolateral oblique views of each breast recorded using digital acquisition. Read with the assistance of CAD. .[facility] - [employer]eler Version 9.2 LIMITATIONS: None. FINDINGS: Findings present which are benign by mammographic criteria. No suspicious masses, calcifi cations or architectural distortion. Pertinent benign findings: Tiny benign-appearing scattered calcifications. Stable bilateral partiall y circumscribed masses consistent with lymph nodes including in the upper outer quadrant on the left. No suspicious findings. Benign mammographic findings may include one or more of the following: Smooth masses, popcorn/rim/co arse calcifications, asymmetries, post-procedure changes, and lesions with long-standing stability. IMPRESSION: BENIGN MAMMOGRAPHIC FINDINGS. BIRADS 2 BREAST DENSITY: b. There are scattered areas of fibroglandular density. BIRAD: ASSESSMENT: 2 BENIGN FINDING(S) RECOMMENDATION: ROUTINE SCREENING COMMENT: The patient has been notified of the results by letter per MQSA requirements. Additional no tification policies are in place for contacting patient with suspicious or incomplete findings. Quality ID #[id number]: The [employer] recommends an annual screening mammogram for women aged 40 years or over. This facility utilizes a reminder system to ensure that all patients receive reminder letters, and/or direct phone calls for appointments. This includes reminders for routine scr eening mammograms, diagnostic mammograms, or other Breast Imaging Interventions when appropriate. Th is patient will be placed in the appropriate reminder system. TECHNICAL DOCUMENTATION: FINDING NUMBER: (1) ASSESSMENT: (1) JOB ID: [id number] 2010 [employer]- All Rights Reserved Reading location - IP/workstation name: [email or web address]
== END ==
LOC: WI 07:08
PROVIDERS: ATTEND Internal Medicine
DX: Z12.31 Encounter for screening mammogram for malignant neoplasm of breast (principal); Z80.3 Family history of malignant neoplasm of breast
CPT/HCPCS: 77067

== ENCOUNTER → 2020-07-20 | Outpatient (CLI) | payer OTHER ==
--- NOTE | 2020-07-20 14:13 | RADIOLOGY REPORT (SQ) ---
EXAM DESCRIPTION: KNEE LEFT 2 VIEWS IMAGES COMPLETED DATE/TIME: 07/20/2020 1:53 pm REASON FOR STUDY: R93.6 ABNORMAL FINDINGS ON DIAGNOSTIC IMAGING OF LIMBS I82.402 ACUTE EMBOLISM AND THOMBOS UNSP DEEP VEINS OF L LOW R93.6 ABNORMAL FINDINGS ON DIAGNOSTIC IMAGING OF LIMBS M25.562 P AIN IN LEFT KNEE COMPARISON: AP, lateral and oblique views of the left knee from 05/16/2019. NUMBER OF VIEWS: Two views. TECHNIQUE: AP and lateral radiographic images acquired of the left knee. LIMITATIONS: None. FINDINGS: MINERALIZATION: Normal. BONES: The serpiginous sclerotic lesion in the proximal fibula is unchanged. There is no acute fract ure or dislocation. JOINT: No effusion. SOFT TISSUES: The quadriceps and patellar tendon silhouettes are intact. OTHER: No other findings. IMPRESSION: No acute osseous abnormality of the left knee. TECHNICAL DOCUMENTATION: JOB ID: [id number] 2010 [employer]- All Rights Reserved Reading location - IP/workstation name: [email or web address]
--- NOTE | 2020-07-20 16:52 | RADIOLOGY REPORT (SQ) ---
EXAM DESCRIPTION: VENOUS UNILATERAL LOWER IMAGES COMPLETED DATE/TIME: 07/20/2020 3:33 pm REASON FOR STUDY: LLE DVT I82.402 ACUTE EMBOLISM AND THOMBOS UNSP DEEP VEINS OF L LOW R93.6 ABNOR MAL FINDINGS ON DIAGNOSTIC IMAGING OF LIMBS M25.562 PAIN IN LEFT KNEE COMPARISON: 06/09/2020 TECHNIQUE: Dynamic and static palma scale and color images acquired of the left leg venous system. Se lected spectral images acquired with additional compression and augmentation maneuvers. The contralat eral common femoral vein and saphenofemoral junction were also imaged. Images stored on PACS. LIMITATIONS: None. FINDINGS: COMMON FEMORAL: Normal phasicity, compression and augmentation. No visualized echogenic ma terial on palma scale. No defects on color images. FEMORAL: Normal compression and augmentation. No visualized echogenic material on palma scale. No defe cts on color images. POPLITEAL: Normal compression, augmentation. No visualized echogenic material on palma scale. No defec ts on color images. CALF VESSELS: Normal compression, augmentation. No visualized echogenic material on palma scale. No de fects on color images. GSV and SSV: Normal compression, augmentation. No visualized echogenic material on palma scale. No def ects on color images. ANY DEEP VENOUS INSUFFICIENCY: Not evaluated. ANY EVIDENCE OF POPLITEAL CYST: No. OTHER: No other significant finding. CONTRALATERAL COMMON FEMORAL VEIN AND SAPHENOFEMORAL JUNCTION: Normal phasicity, compression and augmentation. No visualized echogenic material on palma scale. No de fects on color images. IMPRESSION: NO EVIDENCE DVT OR SVT IN THE LEFT LEG. TECHNICAL DOCUMENTATION: JOB ID: [id number] 2010 [email or web address]- All Rights Reserved Reading location - IP/workstation name: [email or web address]
== END ==
LOC: SP 13:37
PROVIDERS: ATTEND Internal Medicine
DX: I82.402 Acute embolism and thrombosis of unspecified deep veins of left lower extremity (principal); R93.6 Abnormal findings on diagnostic imaging of limbs; M25.562 Pain in left knee; M79.605 Pain in left leg
CPT/HCPCS: 93971

== ENCOUNTER → 2020-07-25 | Outpatient (CLI) | payer OTHER ==
--- NOTE | 2020-07-25 16:27 | XCELERA REPORT ---
[address] [address] Transthoracic Echocardiogram Report Name: MERLENE CURTIS Age: 45 yrs Gender: Female : 1975 Patient Status: Outpatient Patient Location: [facility] Study Date: 07/25/2020 02:32 PM Height: 64 in Weight: 275 lb BSA: 2.2 m2 Reason For Study: CARDIOMEGALY Ordering Physician: ESTELLE ALLEN Performed By: Leatha Beard Interpretation Summary IMPRESSION: 1. Normal LVEF. 2. Normal chamber sizes noted. Borderline LVH noted. 3. Mild Diastolic Dysfunction noted. 4. No significant valvular stenosis or regurgitation noted. FINDINGS: LEFT VENTRICLE: LV Systolic function: LVEF is felt to be within normal limits. Best estimate is approximately LVEF is 60 to 65%. LV Diastolic Function: Grade II diastolic dysfunction noted. Wall motion: No definite regional wall motion abnormalities are noted. Left ventricular chamber size: is within normal limit. Left ventricular wall thickness: Borderline LVH noted. RIGHT VENTRICLE: RV systolic function: is felt to be within normal limit. Right Ventricle Size: is within normal limits. LEFT ATRIUM size: is within normal limit. RIGHT ATRIUM size: is within normal limit. INTER ATRIAL SEPTUM: No definite atrial septal defect noted however a small PFO could be missed. AORTIC ROOT: seems to be within normal limits. ASCENDING AORTA: is not well visualized. INFERIOR VENA CAVA: was not well visualized. VALVES: MITRAL VALVE: Leaflets are mildly thickened. Mobility seems to be within normal limits. Mitral Regurgitation: Trace mitral regurgitation is noted. Mitral Stenosis: No mitral stenosis noted. Mitral valve prolapse: none noted. AORTIC VALVE: seems to be trileaflet with mild thickening but adequate excursion. Aortic stenosis: No aortic stenosis noted. Aortic regurgitation: No aortic incompetence noted. TRICUSPID VALVE: mobility and structures within normal limit. Tricuspid stenosis: no tricuspid stenosis noted. Tricuspid regurgitation: Trace tricuspid regurgitation noted. Estimated RVSP: upper limit of normal. PULMONARY VALVE: was not well visualized but no significant abnormalities suspected. Pulmonary stenosis: no pulmonary stenosis noted. Pulmonary regurgitation: no significant pulmonary regurgitation noted. MASSES AND THROMBUS: No definite intracardiac thrombus or masses are noted. PERICARDIUM: No pericardial effusion was noted. MMode/2D Measurements & Calculations RVDd: 3.1 cm LVIDd: 4.8 cm FS: 32.8 % Ao root diam: IVSd: 1.0 cm LVIDs: 3.2 cm EDV(Teich): 2.4 cm LVPWd: 0.94 cm 105.8 ml Ao root area: ESV(Teich): 41.1 ml 4.7 cm2 LA dimension: EF(Teich): 61.2 % 3.2 cm LVLd ap4: 8.9 cm SV(MOD-sp4): EDV(MOD-sp4): 59.0 ml 113.0 ml LVLs ap4: 6.8 cm ESV(MOD-sp4): 54.0 ml EF(MOD-sp4): 52.2 % Doppler Measurements & Calculations MV E max latrice: MV P1/2t max latrice: Ao V2 max: LV V1 max P.6 cm/sec 111.3 cm/sec 144.4 cm/sec 5.8 mmHg MV A max latrice: MV P1/2t: 87.9 msec Ao max PG: LV V1 max: 82.4 cm/sec MVA(P1/2t): 2.5 cm2 8.3 mmHg 120.7 cm/sec MV E/A: 1.3 MV dec slope: 371.0 cm/sec2 MV dec time: 0.22 sec PA V2 max: MV P1/2t-pr_phl: 119.4 cm/sec 87.9 msec PA max P.7 mmHg : ESTELLE ALLEN Shyamal
== END ==
LOC: SP 13:54
PROVIDERS: ATTEND Internal Medicine
DX: I11.9 Hypertensive heart disease without heart failure (principal)
CPT/HCPCS: 93306

== ENCOUNTER 2020-07-26 10:51 | Emergency (ER) | payer OTHER ==
--- NOTE | 2020-07-26 11:09 | ER Document Report ---
ED Medical Screen (RME) - General Chief Complaint: Abdominal Pain Stated Complaint: LEG PAIN,ABDOMINAL PAIN Time Seen by Provider: 07/26/20 10:59 Primary Care Provider: [facility] [Primary Care Provider] - Follow up as needed TRAVEL OUTSIDE OF THE [place] IN LAST 30 DAYS: No - HPI Notes: 07/26/20 11:06 45-year-old female presents to the emergency room for pelvic cramping for the last 3 days with nausea that has become progressively worse. Denies any vaginal bleeding or vaginal discharge. Patient reports she had a partial hysterectomy in 2006. She did tell the nurse that she had a positive test in February but she ignored it due to having a partial hysterectomy. Patient also reports right knee pain after she fell yesterday, she does have a history of left knee pain, she recently had MRI of the head and recently had a blood clot in her left leg that has now resolved. Patient states she woke up this morning with left flank pain. Denies any dysuria, fevers, chills, numbness or tingling down arms or legs, abdominal pain, chest pain, shortness of breath. I have greeted and performed a rapid initial assessment of this patient. A comprehensive ED assessment and evaluation of the patient, analysis of test results and completion of the medical decision making process will be conducted by additional ED providers. PHYSICAL EXAMINATION: GENERAL: Well-appearing, well-nourished and in no acute distress. CV: s1, s2 regular LUNGS: No respiratory distress abd: suprapubic tenderness on palpation, no cva tenderness appreciated bilaterally Musculoskeletal: Normal range of motion. R knee tenderness on palpation. unable to bear full weight. - Related Data Allergies/Adverse Reactions: hydromorphone [From Dilaudid] Adverse Reaction (Severe, Verified 07/26/20 10:58) Anxiety ibuprofen Adverse Reaction (Intermediate, Verified 07/26/20 10:58) Vomiting Past Medical History - Past Medical History Cardiac Medical History: Reports: Hx Hypertension Pulmonary Medical History: Reports: Hx Asthma Renal/ Medical History: Denies: Hx Peritoneal Dialysis Past Surgical History: Reports: Hx Section, Hx Cholecystectomy, Hx Hysterectomy - Immunizations Hx Diphtheria, Pertussis, Tetanus Vaccination: Yes Physical Exam - Vital signs Vitals: Temp Pulse Resp BP Pulse Ox 98.2 F 79 20 154/93 H 99 07/26/20 10:57 07/26/20 10:57 07/26/20 10:57 07/26/20 10:57 07/26/20 10:57 Course - Vital Signs Vital signs: Temp Pulse Resp BP Pulse Ox 98.2 F 79 20 154/93 H 99 07/26/20 10:57 07/26/20 10:57 07/26/20 10:57 07/26/20 10:57 07/26/20 10:57 Doctor's Discharge - Discharge [facility]errals: [facility] [Primary Care Provider] - Follow up as needed
[2020-07-26 11:35] LABS: ABSOLUTE BASOPHILS # (AUTO) 0.1 10^3/uL (0.0-0.2); ABSOLUTE EOSINOPHILS # (AUTO) 0.1 10^3/uL (0.0-0.6); ABSOLUTE LYMPHOCYTES (AUTO) 2.2 10^3/uL (0.5-4.7); ABSOLUTE MONOCYTES (AUTO) 0.5 10^3/uL (0.1-1.4); ABSOLUTE NEUT (AUTO) 4.5 10^3/uL (1.7-8.2); BASOPHILS % (AUTO) 1.1 % (0-2); EOSINOPHILS % (AUTO) 1.4 % (0-6); HEMATOCRIT 41.6 % (36.0-47.0); HEMOGLOBIN 13.9 g/dL (12.0-15.5); LYMPHOCYTES % (AUTO) 29.8 % (13-45); MEAN CORPUSCULAR HEMOGLOBIN 29.4 pg (27.0-33.4); MEAN CORPUSCULAR HGB CONC 33.4 g/dL (32.0-36.0); MEAN CORPUSCULAR VOLUME 88 fl (80-97); MONOCYTES % (AUTO) 6.3 % (3-13); PLATELET COUNT 304 10^3/uL (150-450); RED BLOOD COUNT 4.73 10^6/uL (3.72-5.28); RED CELL DISTRIBUTION WIDTH 14.6 % (11.5-14.0); SEGMENTED NEUTROPHILS % (AUTO) 61.4 % (42-78); TOTAL CELLS COUNTED % (AUTO) 100 %; WHITE BLOOD COUNT 7.3 10^3/uL (4.0-10.5)
[2020-07-26 11:52] LABS: ALBUMIN 4.3 g/dL (3.5-5.0); ALKALINE PHOSPHATASE 98 U/L (38-126); ANION GAP 8 (5-19); ASPARTATE AMINO TRANSFERASE 40 U/L (14-36); BILIRUBIN,DIRECT 0.2 mg/dL (0.0-0.4); BILIRUBIN,TOTAL 0.5 mg/dL (0.2-1.3); BLOOD UREA NITROGEN 11 mg/dL (7-20); CALCIUM 10.4 mg/dL (8.4-10.2); CARBON DIOXIDE 34 mmol/L (22-30); CHLORIDE 98 mmol/L (98-107); GLUCOSE 103 mg/dL (75-110); POTASSIUM 3.4 mmol/L (3.6-5.0); TOTAL PROTEIN 7.9 g/dL (6.3-8.2)
--- NOTE | 2020-07-26 12:06 | RADIOLOGY REPORT (SQ) ---
EXAM DESCRIPTION: U/S NON-OB PELVIS TV W/O DOP IMAGES COMPLETED DATE/TIME: 07/26/2020 11:42 am REASON FOR STUDY: pelvic pain x 2 days, +nausea, partial hysterectom COMPARISON: None. TECHNIQUE: Dynamic and static grayscale images acquired of the pelvis via transvaginal approach and recorded on PACS. Additional selected color Doppler and spectral images recorded. LIMITATIONS: Examination limited due to overlying bowel gas and body habitus. FINDINGS: UTERUS: Prior hysterectomy. RIGHT OVARY AND DOPPLER: The right ovary is not visualized due to overlying bowel gas. LEFT OVARY AND DOPPLER: The left ovary is not visualized due to overlying bowel gas. FREE FLUID: None noted. OTHER: No other significant finding. IMPRESSION: 1. Prior hysterectomy. 2. The ovaries are not visualized due to overlying bowel gas. TECHNICAL DOCUMENTATION: JOB ID: [id number] 2010 [employer] All Rights Reserved Reading location - IP/workstation name: [email or web address]
--- NOTE | 2020-07-26 12:08 | RADIOLOGY REPORT (SQ) ---
EXAM DESCRIPTION: KNEE RIGHT 4 VIEWS IMAGES COMPLETED DATE/TIME: 07/26/2020 11:56 am REASON FOR STUDY: fell on R knee x1 day ago, +pain COMPARISON: None. NUMBER OF VIEWS: Four views. TECHNIQUE: AP, lateral, and both oblique radiographic images acquired of the right knee. LIMITATIONS: None. FINDINGS: MINERALIZATION: Normal. BONES: No acute fracture or dislocation. No worrisome bone lesions. JOINT: No effusion. SOFT TISSUES: No soft tissue swelling. No radio-opaque foreign body. OTHER: No other significant finding. IMPRESSION: 1. No acute osseous findings. TECHNICAL DOCUMENTATION: JOB ID: [id number] 2010 [employer]- All Rights Reserved Reading location - IP/workstation name: [email or web address]
[2020-07-26 12:11] LABS: APPEARANCE,URINE CLOUDY; BILIRUBIN,URINE NEGATIVE (NEGATIVE); COLOR,URINE YELLOW; GLUCOSE, URINE NEGATIVE (NEGATIVE); KETONES,URINE NEGATIVE (NEGATIVE); LEUKOCYTE ESTERASE,URINE NEGATIVE (NEGATIVE); NITRITE,URINE NEGATIVE (NEGATIVE); PROTEIN,URINE NEGATIVE (NEGATIVE); URINE SPECIFIC GRAVITY 1.018; UROBILINOGEN,URINE NEGATIVE mg/dL (<2.0)
[2020-07-26] MEDS ORDERED: MORPHINE SULFATE 10 MG/ML INJ IM ONE (12:30)
--- NOTE | 2020-07-26 12:37 | ER Document Report ---
ED Extremity Problem, Lower - General Chief Complaint: Abdominal Pain Stated Complaint: LEG PAIN,ABDOMINAL PAIN Time Seen by Provider: 07/26/20 10:59 Primary [facility]: [facility] [Primary [facility] Provider] - Follow up as needed Mode of Arrival: Ambulatory Information source: Patient TRAVEL OUTSIDE OF THE [place] IN LAST 30 DAYS: No - HPI Notes: Patient presents with abdominal pain. She states is helped for proximally 2 days. It is diffuse and crampy. Is mainly in the lower quadrants. She states the pain feels like when she has had urinary tract infections before. However she does not have any specific pain with urination. Nothing makes his pain better or worse. Radiates across the abdomen. Is mild to moderate in intensity. Patient had no vomiting no diarrhea. No fevers. She states she has had a hysterectomy in the past. She denies any vaginal symptoms at this time. She also states she has bilateral knee pain. The left is greater than the right. She states she has any known torn meniscus in the left knee and has been unable to see orthopedics to have the issue addressed. She states that she did fall yesterday and now has increased pain. - Related Data Allergies/Adverse Reactions: hydromorphone [From Dilaudid] Adverse Reaction (Severe, Verified 07/26/20 10:58) Anxiety ibuprofen Adverse Reaction (Intermediate, Verified 07/26/20 10:58) Vomiting Past Medical History - General Information source: Patient - Social History Smoking Status: Current Every Day Smoker Frequency of alcohol use: None Drug Abuse: None Family History: Reviewed & Not Pertinent - Past Medical History Cardiac Medical History: Reports: Hx Hypertension Pulmonary Medical History: Reports: Hx Asthma Renal/ Medical History: Denies: Hx Peritoneal Dialysis Past Surgical History: Reports: Hx Section, Hx Cholecystectomy, Hx Hysterectomy - Immunizations Hx Diphtheria, Pertussis, Tetanus Vaccination: Yes Review of Systems - Review of Systems Constitutional: denies: Chills, Fever Cardiovascular: denies: Chest pain, Palpitations Respiratory: denies: Cough, Short of breath -: Yes All other systems reviewed and negative Physical Exam - Vital signs Vitals: Temp Pulse Resp BP Pulse Ox 98.2 F 79 20 154/93 H 99 07/26/20 10:57 07/26/20 10:57 07/26/20 10:57 07/26/20 10:57 07/26/20 10:57 Interpretation: Hypertensive - General General appearance: Appears well, Alert - HEENT Head: Normocephalic, Atraumatic Eyes: Normal Pupils: PERRL - Respiratory Respiratory status: No respiratory distress Chest status: Nontender Breath sounds: Normal Chest palpation: Normal - Cardiovascular Rhythm: Regular Heart sounds: Normal auscultation Murmur: No - Abdominal Inspection: Normal Distension: No distension Bowel sounds: Normal Tenderness: Nontender Organomegaly: No organomegaly - Back Back: Normal, Nontender - Extremities General upper extremity: Normal inspection, Nontender, Normal color, Normal ROM, Normal temperature General lower extremity: Normal inspection, Tender - Left knee has some mild dif fuse tenderness to palpation. Due to patient's body habitus a am not able to appreciate if there is a small effusion. There is definitely not a large effusion. No increased warmth., Normal color, Normal temperature - Neurological Neuro grossly intact: Yes Cognition: Normal Orientation: AAOx4 Aurelia Coma Scale Eye Opening: Spontaneous Jackson Coma Scale Verbal: Oriented Aurelia Coma Scale Motor: Obeys Commands Jackson Coma Scale Total: 15 Speech: Normal Motor strength normal: LUE, RUE, LLE, RLE Sensory: Normal - Psychological Associated symptoms: Normal affect, Normal mood - Skin Skin Temperature: Warm Skin Moisture: Dry Skin Color: Normal Course - Vital Signs Vital signs: Temp Pulse Resp BP Pulse Ox 98.2 F 79 20 154/93 H 99 07/26/20 10:57 07/26/20 10:57 07/26/20 10:57 07/26/20 10:57 07/26/20 10:57 - Laboratory Result Diagrams: 07/26/20 11:10 07/26/20 11:10 Laboratory results interpreted by me: 07/26/20 07/26/20 07/26/20 11:10 11:10 11:59 RDW 14.6 H Potassium 3.4 L Carbon Dioxide 34 H Calcium 10.4 H AST 40 H ALT 44 H Urine Blood SMALL H - Diagnostic Test Radiology Studies Status: Radiology Report Reviewed Radiology results interpreted by me: 07/26/20 12:34 Reviewed reports Discharge - Discharge Clinical Impression: Abdominal pain Qualifiers: Abdominal location: lower abdomen, unspecified Qualified Code(s): R10.30 - Lower abdominal pain, unspecified Left knee pain Qualifiers: Chronicity: chronic Qualified Code(s): M25.562 - Pain in left knee; G89.29 - Other chronic pain Condition: Stable Disposition: HOME, SELF-CARE Instructions: Abdominal Pain ([facility]), Pain Medication Injection ([facility]), Suspected Internal Knee Injury ([facility]) Additional Instructions: Please follow-up with orthopedics as soon as possible Prescriptions: Hydrocodone/Acetaminophen [[place] 5-325 mg Tablet] 1 tab PO Q6 PRN 3 Days #12 tablet PRN Reason: Forms: Return to Work Referrals: JOSIAH FORBES JR, DO [ACTIVE PROVISIONAL STAFF] - Follow up in 1 week
[2020-07-26 12:53] VITALS: BP 152/103
== END 2020-07-26 12:50 | disposition home or self-care (01) ==
LOC: ER 10:51
DX: R10.30 Lower abdominal pain, unspecified (principal); R10.31 Right lower quadrant pain; R10.32 Left lower quadrant pain; M25.561 Pain in right knee; M25.562 Pain in left knee; G89.29 Other chronic pain; Z88.8 Allergy status to other drugs, medicaments and biological substances; Z90.710 Acquired absence of both cervix and uterus; F17.200 Nicotine dependence, unspecified, uncomplicated
CPT/HCPCS: 99285; 96372; 36415; 84702; 83690; 85025; 80053; 81001; 73564; 76830; J2270